=== PATIENT | female | born 1940 | race Caucasian/White ===

== ENCOUNTER 2017-10-14 18:10 | Inpatient (IN) ==
[2017-10-14] MEDS ORDERED: Sodium Chloride 0.9% 1,000 ML PRIMARY IV ONE (18:32)
[2017-10-14] MEDS ORDERED: MORPHINE SULFATE 4 MG/1 ML IVP ONE ×2 (18:32→20:46)
[2017-10-14] MEDS ORDERED: ONDANSETRON 4 MG/2 ML VIAL IVP ONE (18:32)
--- NOTE | 2017-10-14 18:38 | PDOC ---
Abdomen/Flank HPI - General Chief Complaint: Abdomen Pain Stated Complaint: abdominal pain, N/V/D Date Seen by Provider: 10/14/17 Time Seen by Provider: 18:31 Source: POSITIVE: Patient Exam Limitations: POSITIVE: No limitations Nurse's Notes Reviewed & Considered: Yes - History of Present Illness Initial Comments: This is a well-developed, well-nourished, 76-year-old female complaining of lower abdominal pain and vomiting. Patient states that she is traveling through [place] from [place] to [facility] and onto [facility]. She and her are to in the [place] in [place]. This morning she noticed that she had an upset stomach and some nausea. This seemed to resolve and then about 2 PM came back and escalated. She has had vomiting, and nausea, denies any diarrhea, she does have suprapubic abdominal pain. Patient has a mild headache, denies sore throat, no chest pain or shortness of breath, she does have a mild cough, denies any hematuria or dysuria, no increased frequency or decreased volume of urination, no rashes, no myalgias or arthralgias. Patient states she has had chills and is unsure if she has had a fever today. Body Location Affected: REPORTS: Abdomen Timing: REPORTS: Abrupt Duration: 4-6 hours Severity: Severe Quality: REPORTS: Cramping, "Pain" Abdominal Pain Onset Location: REPORTS: Suprapubic Abdominal Pain Radiation: REPORTS: No radiation Context: REPORTS: None Modifying Factors: improves with: Nothing Associated Symptoms: REPORTS: Chills, Nausea, Vomiting Similar Symptoms Previously: No Recent Care Received: REPORTS: Denies Any Prior Injuries Related to Current Complaint?: No - Patient Home Medications Home Medications: Home Medications Albuterol Sulfate [Proair Hfa] 2 puff INH Q6H PRN 10/14/17 Aspirin [Rocio Chewable Aspirin] 81 mg PO DAILY 10/14/17 Calcium Carbonate [Tums] 200 mg PO BID 10/14/17 Carvedilol [Coreg] 6.25 mg PO BID 10/14/17 Cholecalciferol [Vitamin D3] 1,000 mg PO DAILY 10/14/17 Diltiazem HCl [Cartia Xt] 240 mg PO DAILY 10/14/17 Fenofibrate 160 mg PO BEDTIME 10/14/17 Levothyroxine Sodium [Synthroid] 75 mcg PO DAILY 10/14/17 Meclizine HCl 25 mg PO Q6H PRN 10/14/17 Montelukast Sodium 10 mg PO DAILY 10/14/17 Multivitamin [Multivitamins] 1 ea PO DAILY 10/14/17 Mv-Min/FA/Vit K/Lycop/Lut/Zeax [Ocuvite Eye Plus Multi Tablet] 1 tab PO DAILY [place]-3/Dha/Epa/Fish Oil [Fish Oil 1,400 mg Softgel] 1,400 mg PO DAILY 10/14/17 Pantoprazole Sodium [Protonix] 40 mg PO BID 10/14/17 Pravastatin Sodium 40 mg PO DAILY 10/14/17 metFORMIN Tab [Glucophage Tab] 500 mg PO BID 10/14/17 - Patient Allergies Allergies/Adverse Reactions: Allergies 3 Allergy/AdvReac Type Severity Reaction Status Date / Time codeine Allergy ITCHING Verified 10/14/17 18:45 dicloxacillin Allergy RASH Verified 10/14/17 18:45 fentanyl Allergy VOMITING Verified 10/14/17 18:45 Influenza Virus Vaccines Allergy Anaphylaxis Verified 10/14/17 18:45 metformin Allergy DIARRHEA Verified 10/14/17 18:45 midazolam [From Versed] Allergy VOMITING Verified 10/14/17 18:45 promethazine Allergy DYSPHORIA Verified 10/14/17 18:45 tramadol Allergy VOMITING Verified 10/14/17 18:45 gatifloxacin [From Tequin] AdvReac ITCHING Verified 10/14/17 18:45 hydrocodone AdvReac ITCHING Verified 10/14/17 18:45 ROS - Limitations ROS Limitations: No Limitations Constitution: REPORTS: Chills Cardiovascular: REPORTS: Denies Cardiac Symptoms Respiratory: REPORTS: Cough Non Productive Neurological: REPORTS: Headache Gastrointestinal: REPORTS: Abdominal Pain, Nausea, Vomitting Endocrine: REPORTS: Denies Symptoms Musculoskeletal: REPORTS: Denies MS Symptoms Genitourinary: REPORTS: Denies Symptoms Eyes: REPORTS: Denies Symptoms ENT: REPORTS: Denies Symptoms Skin: REPORTS: Denies Skin Symptoms Lympathic: REPORTS: Denies Lympathic Symptoms Immunologic: POSITIVE: Denies Symptoms Psychiatric: POSITIVE: Denies Psych Symptoms Abdominal/Flank Pain PE - General Appearance General Appearance: POSITIVE: Alert, Cooperative, No Evidence of Trauma, Moderate Distress - HEENT HEENT: POSITIVE: Head Inspection Nml, Eyes Inspection Nml, Ears Inspection Nml, Nose Inspection Nml, Oral/Dental Inspect. Nml, Pharynx Inspect. Nml, PERRL, EOMI - Neck Neck: POSITIVE: Normal Inspection - Respiratory Respiratory: POSITIVE: No Respiratory Distress, Breath Sounds Normal, Chest Non- Tender - Cardiovascular Cardiovascular: POSITIVE: Regular Rate and Rhythm, Heart Sounds Normal, Strong Pulses Peripheral Pulses: Radial (R): 4+ - Chest Chest: POSITIVE: Non Tender - Abdomen Abdomen: Soft: (All Quadrants), Denies Tenderness: (LUQ), (RUQ), No Splenomegaly : (All Quadrants), No Hepatomegaly: (All Quadrants), No Guarding: (LUQ), (RUQ), No Rebound: (All Quadrants), No Palpable Pulse: (All Quadrants), No Palpabale Mass: (All Quadrants), No Distention: (All Quadrants), No Rigidity: (All Quadrants), Tenderness Noted: (LLQ), (RLQ), Hyperactive Bowel Sounds: (All Quadrants), Guarding: (RLQ), (LLQ) - Back Back: POSITIVE: Normal Inspection - Skin Skin: POSITIVE: Intact, Normal For Race, Warm, Dry, No Rash - Extremities Extremity: Non-Tender: (All Extremities), Normal ROM: (All Extremities), Normal Inspection: (All Extremities), Pelvis Stable: (All Extremities) - Neurological Neurological: POSITIVE: Affect Apporpriate, Oriented X3, Motor Normal, Sensation Normal - Psychological Psychiatric: POSITIVE: Affect Appropriate, Mood Appropriate Abdomen Progress - Results Reviewed by me Xrays/CTs/US Reviewed by me: Yes Discussed with Radiologist: Yes Lab Results Reviewed by Me: Yes CBC and BMP: 10/14/17 18:25 10/14/17 18:25 - Consult Consult (If Yes, Name of Consulting MD & Time Called): Yes (Dr. Santoyo, Dr. Simmons 2039 hrs) Consulting MD will see pt:: [place] [facility] [place] Counseled: POSITIVE: Patient, Family, RE: Lab Results, RE: Radiology Results, RE : DX, RE: Need for F/U Patient Care Time - Estimated PCT Patient Care Time (In Minutes): 45 Vital Signs - VS Reviewed Vital Signs Reviewed: Yes Discharge Clinical Impression: Abdominal pain, Pneumoperitoneum, Sigmoid diverticulitis Discharge Disposition: Admit to Inpatient Condition: Stable Patient Instructions Given at Discharge: Acute Abdominal Pain (ED), Diverticulitis (ED) Follow Up With: NONE,NONE [Primary Care Provider] - Date Decision to Admit to Inpatient: 10/14/17 Time Decision to Admit to Inpatient: 20:43
[2017-10-14 18:39] LABS: BASOPHILS # (AUTO) 0.01 10*3/UL; BASOPHILS % (AUTO) 0.2 % (0-1); EOSINOPHILS # (AUTO) 0.06 10*3/UL; Hematocrit [HCT] 35.9 % (37.0-47.0); Hemoglobin [HGB] 11.9 g/dL (12.0-16.0); LYMPHOCYTES # (AUTO) 0.95 10*3/uL; MEAN CORPUSCULAR HEMOGLOBIN 30.2 PG (27-31); MEAN CORPUSCULAR HGB CONC 33.1 g/dL (33-37); MEAN CORPUSCULAR VOLUME 91.1 FL (81-99); MEAN PLATELET VOLUME 10.6 FL (7.4-12.2); MONOCYTES # (AUTO) 0.31 10*3/UL (0.3-0.8); MONOCYTES % (AUTO) 5.1 % (5-15); NEUTROPHILS # (AUTO) 4.77 10*3/UL; RED BLOOD COUNT 3.94 10^6/uL (4.20-5.40)
[2017-10-14 18:40] LABS: PLATELET MORPHOLOGY COMMENT NORMAL MORPHOLOGY (NORM); RBC MORPHOLOGY COMMENT NORMAL MORPHOLOGY (NORM); WBC MORPHOLOGY COMMENT NORMAL MORPHOLOGY (NORM)
[2017-10-14] MEDS ORDERED: diphenhydrAMINE 50 MG/1 ML VIAL IVP ONE (18:50)
[2017-10-14] MEDS ORDERED: Acetaminophen 1000mg Inj 1,000 MG/100 ML VIAL IV PRN (18:50)
[2017-10-14] MEDS ORDERED: Prochlorperazine Edisylate Inj 10mg/2ml vial IVP ONE (18:50)
[2017-10-14 18:51] LABS: BLOOD UREA NITROGEN 16 mg/dL (7-22)
[2017-10-14 18:56] LABS: BILIRUBIN,URINE NEGATIVE (NEG); CLARITY,URINE CLEAR (CLEAR); COLOR,URINE YELLOW (Y); GLUCOSE, URINE (UA) NEGATIVE (NEG); OCCULT BLOOD,URINE NEGATIVE (NEG); PH,URINE >=9.0 (5.0-8.5); PROTEIN,URINE NEGATIVE (NEG); UROBILINOGEN,URINE 0.2 EU/dL (0.2)
[2017-10-14 19:18] LABS: URINE SAMPLE TYPE CLEAN CATCH URINE
[2017-10-14] MEDS ORDERED: Magnesium Sulfate 2gm (Premix) 2 GM/50 ML BAG IV ONE (19:33)
--- NOTE | 2017-10-14 20:24 | DI ---
EXAM: CT Abdomen and Pelvis With Intravenous Contrast CLINICAL HISTORY: Pain TECHNIQUE: Axial computed tomography images of the abdomen and pelvis with intravenous contrast. COMPARISON: No relevant prior studies available. FINDINGS: Lung bases: Bibasilar dependent densities may represent atelectasis. An infectious or inflammatory process is not excluded. ABDOMEN: Liver: Unremarkable. Gallbladder and bile ducts: Gallbladder distention. No calcified gallstones. Pancreas: Unremarkable. Spleen: Unremarkable. Adrenals: Unremarkable. Kidneys and ureters: Unremarkable. No solid mass. No hydronephrosis. Stomach and bowel: Thickening of the sigmoid colon with surrounding inflammatory change is concerning for diverticulitis. Small locules of gas adjacent to the sigmoid colon are suggestive of perforated sigmoid diverticulitis. Small bowel is nondilated PELVIS: Appendix: No findings to suggest acute appendicitis. Bladder: Unremarkable. Reproductive: Uterus is absent. Line indeterminate peripherally calcified nodule in the right pelvis. ABDOMEN and PELVIS: Intraperitoneal space: Pneumoperitoneum is concerning for bowel perforation. Bones/joints: No acute osseous abnormality. Soft tissues: Unremarkable. Vasculature: Unremarkable. No abdominal aortic aneurysm. Lymph nodes: Unremarkable. IMPRESSION: Pneumoperitoneum is concerning for bowel perforation. Thickening of the sigmoid colon with adjacent extraluminal gas is suggestive of perforated diverticulitis. [employer] 10/14/17 20:44 Call Doctor Regarding Bowel Perforation with Free Air, called Dr. Yong Vela on 10/14 20:43 (-06:00)
[2017-10-14] MEDS ORDERED: Ertapenem Inj 1 GM in Sodium Chloride 0.9% 100 ML IV ONE (20:37)
--- NOTE | 2017-10-14 21:13 | PDOC ---
HPI - History of Present Illness Date of Service: 10/14/17 Time of Service: 21:11 Chief Complaint: abdominal pain History of Present Illness: This is a very pleasant 76 YO from [place] with atrial fibrilation, high cholesterol, colon polyps, pre-diabetes who came down with abdominal pain of fairly acute onset today. The patient states it was lower quadrant, bilateral, and radiated to the back. Had three normal bowel movements, no blood. No nausea or vomiting. Has not had a pain like this before. Needed morphine here in the emergency room. Had a fever in the emergency room but was not aware of a fever prior to getting here. CT scan confirmed a perforated sigmoid colon with thickening. The patient has had a history of colon polyps in the past and has had colonoscopy procedures frequently but does not recall being told she has had diverticular disease. No complaints of chest pain or SOB. She states that she is on aspirin with her atrial fibrillation and is not on any other blood thinners. Dr. Santoyo examined the patient at the same time as me and felt the patient needed to go directly to the OR. INvanz and potassium are on STAT order. Notably, the patient has had two prior C-sections and had an incidental appendectomy. Past Medical History Medical History: 1. prediabetes. 2. colon polyps. 3. atrial fibrillation. 4.asthma. 5. hypercholesterolemia. 6. hypothyroidism Surgical History: 1. bilateral thumb surgery. 2. carpal tunnel release. 3. C- section X 2,. 4. incidental appendectomy Pertinent Family History: significant for heart disease in parents and brother. Past Social History: does not smoke or drink alcohol. over thirty nine years. retired. resides in [place]. has two healthy children. Tobacco Use: Never Smoker In the Past 12 Months, Have Used or Abuse Any of the Following Substance: None Alcohol Use: None Medication / Allergies Home Medications: Home Medications 3 Medication Instructions Recorded Confirmed Type Albuterol Sulfate [Proair Hfa] 2 puff INH Q6H PRN 10/14/17 10/14/17 History Aspirin [Rocio Chewable Aspirin] 81 mg PO DAILY 10/14/17 10/14/17 History Calcium Carbonate [Tums] 200 mg PO BID 10/14/17 10/14/17 History Carvedilol [Coreg] 6.25 mg PO BID 10/14/17 10/14/17 History Cholecalciferol [Vitamin D3] 1,000 mg PO DAILY 10/14/17 10/14/17 History Diltiazem HCl [Cartia Xt] 240 mg PO DAILY 10/14/17 10/14/17 History Fenofibrate 160 mg PO BEDTIME 10/14/17 10/14/17 History Levothyroxine Sodium [Synthroid] 75 mcg PO DAILY 10/14/17 10/14/17 History Meclizine HCl 25 mg PO Q6H PRN 10/14/17 10/14/17 History Montelukast Sodium 10 mg PO DAILY 10/14/17 10/14/17 History Multivitamin [Multivitamins] 1 ea PO DAILY 10/14/17 10/14/17 History Mv-Min/FA/Vit K/Lycop/Lut/Zeax 1 tab PO DAILY 10/14/17 10/14/17 History [Ocuvite Eye Plus Multi Tablet] [place]-3/Dha/Epa/Fish Oil [Fish Oil 1,400 mg PO DAILY 10/14/17 10/14/17 History 1,400 mg Softgel] Pantoprazole Sodium [Protonix] 40 mg PO BID 10/14/17 10/14/17 History Pravastatin Sodium 40 mg PO DAILY 10/14/17 10/14/17 History metFORMIN Tab [Glucophage Tab] 500 mg PO BID 10/14/17 10/14/17 History Allergies/Adverse Reactions: Allergies 3 Allergy/AdvReac Type Severity Reaction Status Date / Time codeine Allergy ITCHING Verified 10/14/17 18:45 dicloxacillin Allergy RASH Verified 10/14/17 18:45 fentanyl Allergy VOMITING Verified 10/14/17 18:45 Influenza Virus Vaccines Allergy Anaphylaxis Verified 10/14/17 18:45 metformin Allergy DIARRHEA Verified 10/14/17 18:45 midazolam [From Versed] Allergy VOMITING Verified 10/14/17 18:45 promethazine Allergy DYSPHORIA Verified 10/14/17 18:45 tramadol Allergy VOMITING Verified 10/14/17 18:45 gatifloxacin [From Tequin] AdvReac ITCHING Verified 10/14/17 18:45 hydrocodone AdvReac ITCHING Verified 10/14/17 18:45 Review of Systems - Review of Systems All Systems: Reviewed & No Additional Complaints Except as Stated (I did a 12 point review of systems and it was negative except as per HPI and that noted below:) - Constitutional Constitutional: REPORTS: Fever / Chills - Gastrointestinal Gastrointestinal / Abdominal: REPORTS: Abdominal Pain - Neurological Neurologic: REPORTS: Headache (past four days.) Exam - Vitals Vital Signs: Vital Signs Temperature 100.2 F Temperature Source Temporal Artery Scan Pulse Rate [Pulse Oximeter] 112 Respiratory Rate 20 Blood Pressure [Left Arm] 175/84 Pulse Ox 92 Oxygen Delivery Method Room Air Height 5 ft 1 in Weight 150 lb - General General Appearance: No Acute Distress, Cooperative Additional General Exam Details: appears in pain, not toxic, not septic appearing. - Head Head Exam: Normal Inspection, Normocephalic, Atraumatic - Eye Eye Exam: POSITIVE: No Scleral Icterus - ENT ENT Exam: POSITIVE: Mucous Membranes Moist - Neck Neck Exam: Normal Inspection, No Tenderness, No Lymphadenopathy, No Thyromegaly - Respiratory Respiratory Exam: POSITIVE: Clear to Auscultation - Bilaterally, Breathing Non Labored Additional Respiratory Exam Details: had increase in abdominal pain with deep breaths. - Cardiovascular Cardiovascular Exam: POSITIVE: No Murmur, No Clicks, No Gallops, No Rubs, No JVD - GI/Abdominal GI/Abdominal Exam: POSITIVE: Normal Bowel Sounds, Guarding Additional GI/Abdominal Exam Details: very tender to palpation, even with distraction. - Rectal Rectal Exam: POSITIVE: Deferred - External Exam: POSITIVE: Deferred Exam: POSITIVE: Deferred - Extremities Extremities Exam: POSITIVE: Normal Capillary Refill, No Clubbing Present, No Edema Present, No Cyanosis Present - Neurological Neurological Exam: POSITIVE: Alert, Oriented x 3, No Facial Droop, Speech Intact / Clear, Moves All Extremities Equally - Psychiatric Psychiatric Exam: POSITIVE: Normal Affect, Normal Mood Results - Labs CBC and BMP: 10/14/17 18:25 10/14/17 18:25 Additional Lab Results: Laboratory Results 10/14/17 10/14/17 10/14/17 Range/Units 18:25 18:25 19:17 WBC 6.11 (4.8-10.8) 10^3/uL RBC 3.94 L (4.20-5.40) 10^6/uL Hgb 11.9 L (12.0-16.0) g/dL Hct 35.9 L (37.0-47.0) % MCV 91.1 (81-99) FL MCH 30.2 (27-31) PG MCHC 33.1 (33-37) g/dL RDW Std Deviation 50.5 H (39-50) fL RDW Coeff of Pascual 15.9 H (11.5-14.5) % Plt Count 188 (140-350) 10*3/uL MPV 10.6 (7.4-12.2) FL Immature Gran % (Auto) 0.2 (0-5) % Neut % (Auto) 78.0 (50-80) % Lymph % (Auto) 15.5 (10-50) % [place] % (Auto) 5.1 (5-15) % Eos % (Auto) 1.0 (0-8) % Baso % (Auto) 0.2 (0-1) % Immature Gran # (Auto) 0.01 10*3/UL Neut # (Auto) 4.77 10*3/UL Lymph # (Auto) 0.95 10*3/uL [place] # (Auto) 0.31 (0.3-0.8) 10*3/UL Eos # (Auto) 0.06 10*3/UL Baso # (Auto) 0.01 10*3/UL WBC Morphology Comment Normal morphology (NORM) Plt Morphology Comment Normal morphology (NORM) RBC Morph Comment Normal morphology (NORM) Sodium 141 (135-145) meq/L Potassium 3.1 L (3.8-5.2) meq/L Chloride 102 (98-112) meq/L Carbon Dioxide 24 (23-33) meq/L Anion Gap 15 (5-20) BUN 16 (7-22) mg/dL Creatinine 1.0 (0.50-1.20) mg/dL BUN/Creatinine Ratio 16.00 (6-20) Glucose 111 H (78-110) mg/dL Calculated Osmolality 293.0 H (267-292) mOsm/kg Calcium 9.1 (8.7-10.7) mg/dL Magnesium 1.3 L (1.6-2.4) mg/dL Total Bilirubin 0.5 (0.3-1.2) mg/dL AST 28 (8-39) IU/L ALT 36 (9-52) IU/L Alkaline Phosphatase 66 (38-126) IU/L C-Reactive Protein 2.9 H (0.0-0.9) mg/dL Total Protein 6.9 (6.1-8.0) g/dL Albumin 4.0 (3.5-4.8) g/dL Globulin 2.8 (2.50-4.10) g/dL Albumin/Globulin Ratio 1.40 (1.3-2.0) mg/g Ur Collection Type Clean catch urine Urine Color Yellow (Y) Urine Clarity Clear (CLEAR) Urine pH >=9.0 (5.0-8.5) Ur Specific [place] 1.015 (1.005-1.030) Urine Protein Negative (NEG) mg/dl Urine Glucose (UA) Negative (NEG) mg/dL Urine Ketones Negative (NEG) Urine Occult Blood Negative (NEG) Urine Nitrate Negative (NEG) Urine Bilirubin Negative (NEG) Urine Urobilinogen 0.2 (0.2) EU/dL Ur Leukocyte Esterase Negative (NEG) Ur Culture Indicated? Culture not set - Imaging Status: Report Reviewed by Me (CT scan positive for diverticular rupture and diverticulitis) AFib Stroke Risk Screening - AFib Stroke Risk (CHADS-VASc) Atrial Fibrillation Ischemic Stroke Risk Factors: Hypertension (patient is managed on aspirin by her regulatory analyst in [place]), Age 65 to 74 years, Female CHADS-VASc Score (A-Fib Stroke Risk Score): 3 CHADS-VASc Risk: High Risk Assessment and Plan - Patient Problems (1) Bowel perforation Current Visit: Yes Status: Acute Code(s): K63.1 - Perforation of intestine ( nontraumatic) (2) Sigmoid diverticulitis Current Visit: Yes Status: Acute Code(s): K57.32 - Diverticulitis of large intestine without perforation or abscess without bleeding (3) Atrial fibrillation Current Visit: Yes Status: Acute Code(s): I48.91 - Unspecified atrial fibrillation Qualifiers: Atrial fibrillation type: chronic Qualified Code(s): I48.2 - Chronic atrial fibrillation (4) Asthma Current Visit: Yes Status: Acute Code(s): J45.909 - Unspecified asthma, uncomplicated Qualifiers: Asthma severity: mild Asthma persistence: intermittent Asthma complication type: uncomplicated Qualified Code(s): J45.20 - Mild intermittent asthma, uncomplicated (5) HTN (hypertension) Current Visit: Yes Status: Acute Code(s): I10 - Essential (primary) hypertension Qualifiers: Hypertension type: essential hypertension Qualified Code(s): I10 - Essential (primary) hypertension (6) Hypercholesterolemia Current Visit: Yes Status: Chronic Code(s): E78.00 - Pure hypercholesterolemia, unspecified (7) Hypothyroidism Current Visit: Yes Status: Chronic Code(s): E03.9 - Hypothyroidism, unspecified Qualifiers: Hypothyroidism type: acquired Qualified Code(s): E03.9 - Hypothyroidism, unspecified - Assessment / Plan Additional Assessment/Plan Details: admit discussed with surgery--patient will go directly from ER to the OR Invanz electrolyte replacement hold meds (PO meds) labs in AM blood cultures pending FULL code discussed with surgery, patient, probably to ICU post surgery for monitoring post operative DVT prophylaxis IV fluis/pain medications/antiemetics.
[2017-10-14] MEDS ORDERED: CALCIUM CARBONATE 500 MG (TUMS) CHEWABLE TABLET PO PRN (21:17)
[2017-10-14] MEDS ORDERED: Ertapenem Inj 1 GM in Sodium Chloride 0.9% 100 ML IV SCH (21:17)
[2017-10-14] MEDS ORDERED: ACETAMINOPHEN 325 MG TABLET PO PRN (21:17)
[2017-10-14] MEDS ORDERED: ALBUTEROL SULFATE 2.5 MG/3 ML NEB PRN (21:17)
[2017-10-14] MEDS ORDERED: DOCUSATE 100 MG CAPSULE PO PRN (21:17)
[2017-10-14] MEDS ORDERED: Sodium Chloride 0.9% 1,000 ML PRIMARY IV SCH (21:17)
[2017-10-14] MEDS ORDERED: HYDROmorphone 2 MG/1 ML IVP PRN (21:17)
[2017-10-14] MEDS ORDERED: LIDOCAINE W/ SODIUM BICARB 0.5 ML SYR SUBD PRN (21:17)
[2017-10-14] MEDS ORDERED: ONDANSETRON 4 MG/2 ML VIAL IVP PRN (21:17)
[2017-10-14] MEDS ORDERED: LIDOCAINE HCL 2 % 10 ML JELLY URO-JECT TOPICAL PRN (21:34)
[2017-10-14] MEDS ORDERED: PROPOFOL 10 MG/1 ML (200 MG/20 ML) VIAL IV ONE (21:41)
[2017-10-14] MEDS ORDERED: LIDOCAINE MPF 2% - 5 ML (20 MG/1 ML) ONE (21:41)
[2017-10-14] MEDS ORDERED: ROCURONIUM 10 MG/1 ML - 5 ML VIAL IVP ONE ×2 (21:42→23:26)
[2017-10-14] MEDS ORDERED: MIDAZOLAM 5 MG/1 ML ONE (21:42)
[2017-10-14] MEDS ORDERED: fentaNYL Inj 250 MCG/5 ML VIAL ONE (21:42)
[2017-10-14] MEDS ORDERED: Lactated Ringers 1,000 ML PRIMARY IV SCH (21:45)
--- NOTE | 2017-10-14 21:51 | CONSULT ---
Consult Note - Consult Consult Date: 10/14/17 Reason for Consult: PreOp Consulation : General Surgery Requesting Physician: Dr. Vela, Dr. Simmons. Primary Care Provider: NONE NONE - History of Present Illness History of Present Illness: The patient is a pleasant 76-year-old female who is traveling across the country in her RV with her who developed significant abdominal pain this morning. She had an upset stomach and nausea. That seemed to pass. She did have a couple of bowel movements. It was not diarrhea and not bloody. She traveled from [facility] to [facility]. She was making lunch about 2: 00 and just had severe suprapubic abdominal pain which radiated into her back. She was nauseated. She told me she vomited once. She presented to the emergency room because the pain just continued to escalate. On arrival she was tachycardic. Her white count was normal. She had a very tender abdomen. CT abdomen and pelvis was done which shows findings consistent with perforated diverticular disease and free intraperitoneal air. She has an acute surgical abdomen. She'll be taken to the operating room for exploratory laparotomy with planned sigmoid colectomy and end colostomy. Hopefully this is a perforated ulcer but findings indicate perforated diverticular disease. Many large diverticuli are seen on the CT scan. Patient does have a history of colon polyps. She's had multiple colonoscopies. She reports she's never been told that she had diverticulosis. She has never had diverticulitis. Her last colonoscopy was in approximately 2014. She is status post hysterectomy and unilateral oophorectomy with incidental appendectomy. Review of Systems - Constitutional Constitutional: REPORTS: General Health Good, Fever / Chills - Gastrointestinal Gastrointestinal / Abdominal: REPORTS: Nausea, Vomiting, Abdominal Pain, Poor Appetite, See HPI Past Medical History Medical History: 1. prediabetes. 2. colon polyps. 3. atrial fibrillation. 4. asthma. 5. hypercholesterolemia. 6. hypothyroidism. 7. GERD. 8. History of pyelonephritis. 9. Hypertension Surgical History: 1. bilateral wrist surgery. 2. carpal tunnel release. 3. C- section X 2,. 4. incidental appendectomy. 5. Hysterectomy with unilateral oophorectomy. 6. Multiple colonoscopies. Pertinent Family History: significant for heart disease in parents and brother. Past Social History: does not smoke or drink alcohol. over thirty nine years. retired. resides in [place]. has two healthy children. Tobacco Use: Never Smoker In the Past 12 Months, Have Used or Abuse Any of the Following Substance: None Alcohol Use: Rarely (Very rarely.) Medication / Allergies Home Medications: Home Medications 3 Medication Instructions Recorded Confirmed Type Albuterol Sulfate [Proair Hfa] 2 puff INH Q6H PRN 10/14/17 10/14/17 History Aspirin [Rocio Chewable Aspirin] 81 mg PO DAILY 10/14/17 10/14/17 History Calcium Carbonate [Tums] 200 mg PO BID 10/14/17 10/14/17 History Carvedilol [Coreg] 6.25 mg PO BID 10/14/17 10/14/17 History Cholecalciferol [Vitamin D3] 1,000 mg PO DAILY 10/14/17 10/14/17 History Diltiazem HCl [Cartia Xt] 240 mg PO DAILY 10/14/17 10/14/17 History Fenofibrate 160 mg PO BEDTIME 10/14/17 10/14/17 History Levothyroxine Sodium [Synthroid] 75 mcg PO DAILY 10/14/17 10/14/17 History Meclizine HCl 25 mg PO Q6H PRN 10/14/17 10/14/17 History Montelukast Sodium 10 mg PO DAILY 10/14/17 10/14/17 History Multivitamin [Multivitamins] 1 ea PO DAILY 10/14/17 10/14/17 History Mv-Min/FA/Vit K/Lycop/Lut/Zeax 1 tab PO DAILY 10/14/17 10/14/17 History [Ocuvite Eye Plus Multi Tablet] [place]-3/Dha/Epa/Fish Oil [Fish Oil 1,400 mg PO DAILY 10/14/17 10/14/17 History 1,400 mg Softgel] Pantoprazole Sodium [Protonix] 40 mg PO BID 10/14/17 10/14/17 History Pravastatin Sodium 40 mg PO DAILY 10/14/17 10/14/17 History metFORMIN Tab [Glucophage Tab] 500 mg PO BID 10/14/17 10/14/17 History Allergies/Adverse Reactions: Allergies 3 Allergy/AdvReac Type Severity Reaction Status Date / Time codeine Allergy ITCHING Verified 10/14/17 18:45 dicloxacillin Allergy RASH Verified 10/14/17 18:45 fentanyl Allergy VOMITING Verified 10/14/17 18:45 Influenza Virus Vaccines Allergy Anaphylaxis Verified 10/14/17 18:45 metformin Allergy DIARRHEA Verified 10/14/17 18:45 midazolam [From Versed] Allergy VOMITING Verified 10/14/17 18:45 promethazine Allergy DYSPHORIA Verified 10/14/17 18:45 tramadol Allergy VOMITING Verified 10/14/17 18:45 gatifloxacin [From Tequin] AdvReac ITCHING Verified 10/14/17 18:45 hydrocodone AdvReac ITCHING Verified 10/14/17 18:45 Results - Labs CBC and BMP: 10/14/17 18:25 10/14/17 18:25 - Imaging Status: Image Reviewed by Me, Report Reviewed by Me Exam - Vitals Vital Signs: Vital Signs Temperature 100.2 F Temperature Source Temporal Artery Scan Pulse Rate [Pulse Oximeter] 112 Respiratory Rate 20 Blood Pressure [Left Arm] 175/84 Pulse Ox 92 Oxygen Delivery Method Room Air Height 5 ft 1 in Weight 150 lb - General General Appearance: Cooperative, Mild Distress - Respiratory Respiratory Exam: POSITIVE: Clear to Auscultation - Bilaterally, Breathing Non Labored - Cardiovascular Cardiovascular Exam: POSITIVE: RRR, No Murmur - GI/Abdominal GI/Abdominal Exam: POSITIVE: Firm, Distended, Guarding, Hypoactive Bowel Sounds , Rebound, Rigid Additional GI/Abdominal Exam Details: Diffuse abdominal tenderness with peritoneal signs. Guarding and rebound are present. Nonfocal exam. Patient has peritonitis. - Rectal Rectal Exam: POSITIVE: Deferred - Neurological Neurological Exam: POSITIVE: Alert, Oriented x 3 - Psychiatric Psychiatric Exam: POSITIVE: Normal Affect, Normal Mood Assessment and Plan - Patient Problems (1) Perforated viscus Current Visit: Yes Status: Acute Priority: High Onset Date: 10/14/17 Comment: This appears to be consistent with perforated diverticular disease. There is free intraperitoneal air as well as multiple bubbles within the mesentery. There is inflammation around the sigmoid colon and large diverticuli. She will be taken to the operating room for an exploratory laparotomy with planned sigmoid colectomy and end colostomy i.e. a Lucia procedure. The procedure has been discussed with the patient in complete yet simple terms including benefits, risks, and alternatives. All questions have been answered. Informed consent has been obtained. I have discussed all the above with the patient and her as well as the hospitalist and the emergency room physician. All are in agreement to proceed as outlined. Dr. Simmons will manage her medical problems postoperatively. Code(s): R19.8 - Other specified symptoms and signs involving the digestive system and abdomen
[2017-10-14] MEDS ORDERED: SUFENTANIL 50 MCG/1 ML ONE (22:12)
[2017-10-14] MEDS ORDERED: HYDROmorphone 2 MG/1 ML ONE ×2 (22:14→22:55)
[2017-10-14] MEDS ORDERED: Sodium Chloride 0.9% 100 ML IV ONE (22:32)
[2017-10-14] MEDS ORDERED: Lactated Ringers 1,000 ML PRIMARY IV ONE ×2 (22:45→23:21)
[2017-10-14] MEDS ORDERED: KETAMINE 100 MG/1 ML - 5 ML ONE (22:53)
[2017-10-14] MEDS ORDERED: Bacteriostatic NaCl Inj 30ml Vial ONE (23:29)
[2017-10-14] MEDS ORDERED: Sodium Chloride 0.9% vial 10 ML ONE (23:29)
[2017-10-14] MEDS ORDERED: BUPivacaine Liposome/PF (Exparel) Inj 20ml vial INFIL ONE (23:29)
[2017-10-15] MEDS ORDERED: ePHEDrine Inj 50 MG/ML AMP ONE (00:13)
[2017-10-15] MEDS ORDERED: SUGAMMADEX SODIUM 200 MG/2 ML VIAL IV ONE (00:36)
[2017-10-15] MEDS ORDERED: ONDANSETRON 4 MG/2 ML VIAL ONE (00:44)
--- NOTE | 2017-10-15 00:48 | GEN.OPNOTE ---
Operative Note Surgery Date: 10/14/17 (finished 10/15/2017) Preoperative Diagnosis: Perforated viscus. Probable perforated diverticular disease. Postoperative Diagnosis: Perforated diverticular disease. Procedure: #1 Colectomy with end colostomy and closure of the distal segment i.e. Lucia procedure. #2 Right oophorectomy. Surgeon: Jose F Santoyo MD Anesthesia Provider: Maury Aguilar CRNA Anesthesia Type: General Estimated Blood Loss (mL): 50 Fluids: 500 mL of normal saline. 2300 mL of lactated Ringer's. 1 g of IV Invanz prior to the start of the procedure. 15 mg of IV Toradol at the end of the procedure. Pathology: Specimens to pathology included the resected sigmoid colon and the right ovary. Indications: Perforated viscus consistent with perforated diverticular disease and an acute abdomen. Findings: Sigmoid diverticulosis with full-thickness perforation. Fluid and air in the peritoneal cavity. The fluid was turbid. No feculent material. The right ovary was rock hard and nodular. It was removed for pathologic analysis. Complications: None. Operative Summary: The patient was taken to the operating suite and placed on the operating table in the supine position. Following induction of general anesthetic the abdomen was prepped and draped in a sterile fashion. A surgical timeout was done. A periumbilical incision was made. The incision was extended both superiorly and inferiorly. An Bhaskar wound retractor was placed. The abdomen contained fluid and air. The fluid was turbid but there was no gross fecal material. Palpation revealed sigmoid colon thickening and inflammatory changes. The stomach and duodenum appeared normal. The small bowel was run from the ligament of Treitz to the cecum. There was some serosal inflammation on the small bowel but no signs of perforation. The cecum, ascending colon and transverse colon were quite dilated with air. The sigmoid colon had very dense inflammatory changes and a full-thickness perforation. Extensive irrigation and suctioning were performed. Attention was turned to the sigmoid colon. It was mobilized. Transection sites were chosen proximally and distally. The bowel was cleared of pericolonic fat. The proximal bowel was transected with a linear 55 mm stapling device. The distal bowel was stapled off with a 60 mm stapling device. The bowel was clamped opposite the stapler and divided. The mesentery was taken down by serially clamping dividing and ligating the mesentery with 0 Vicryl ties. I stayed close to the bowel as this appeared to be a benign process. The sigmoid colon was removed from the operative field. Hemostasis was assured. Again extensive irrigation was done. Having resected the bowel the distal rectal stump was secured to the pelvic sidewall with a 2-0 Prolene suture. The descending colon was mobilized. Once we had enough length to perform a colostomy attention was turned to the abdominal wall. A chilkat of skin was removed as well as a plug of adipose tissue. The abdominal fascia was cut in a cruciate fashion. This was just at the lateral border of the rectus muscle. The posterior sheath was incised. The descending colon was passed through the abdominal wall. Final irrigation and suctioning were performed. Intestines were placed in a relative anatomic position and covered with omentum. The midline fascia was closed with running # 1 Prolene. The wound was extensively irrigated. It was partially closed in sections with a stapling device. Saline soaked gauze tape was used to pack the wound where it had been left open. An appropriate dressing was placed. Both the midline incision and the stoma site were circumferentially infiltrated with Exparel Attention was turned to the stoma site. The staple line was excised. The colostomy was matured with 4-0 Vicryl sutures in the usual fashion. An appropriate appliance was placed. The patient tolerated the entire procedure well without complication. She was taken to recovery room in stable but guarded condition. All counts were correct.
[2017-10-15] MEDS ORDERED: KETOROLAC 30 MG/1 ML VIAL ONE (00:50)
[2017-10-15] MEDS ORDERED: Nalbuphine Inj 20 MG/ML Ampule ONE (00:56)
[2017-10-15] MEDS ORDERED: Nalbuphine Inj 20 MG/ML Ampule IVP PRN (01:12)
[2017-10-15] MEDS ORDERED: LIDOCAINE W/ SODIUM BICARB 0.5 ML SYR SUBD PRN (01:12)
--- NOTE | 2017-10-15 01:12 | CRNA.PROGR ---
Anesthesia Time - - Start date: 10/14/17 End date: 10/15/17 - Procedure/Recovery Time Anesthesia : Time In: 22:15 Anesthesia : Time Out: 01:09 Anesthesia : Total Time: 174 - Total Anesthesia Time Total Anesthesia Time (minutes): 174 - Other Weight: 68.039 kg Height: 5 ft 1 in Body Mass Index (BMI): 28.3 Physical Status: P3 Anesthesia Type: General Anesthesia : ET (E)
--- NOTE | 2017-10-15 01:12 | CRNA.PROGR ---
Anesthesia Recovery Phase I - Post Anesthesia Evaluation Patient's Condition on Arrival in Phase I: Stable Pain Level: 0
[2017-10-15] MEDS ORDERED: HYDROmorphone 2 MG/1 ML IVP PRN (01:59)
[2017-10-15] MEDS ORDERED: ALBUTEROL SULFATE 2.5 MG/3 ML NEB PRN (01:59)
[2017-10-15] MEDS: D5-LR + 20mEq KCL 1,000 ML PRIMARY IV SCH ×2 (02:30→11:05)
[2017-10-15] MEDS ORDERED: Acetaminophen 1000mg Inj 1,000 MG/100 ML VIAL IV PRN (04:00)
[2017-10-15] MEDS: ONDANSETRON 4 MG/2 ML VIAL IVP PRN ×2 (04:52→16:22)
[2017-10-15 05:12] LABS: BASOPHILS # (AUTO) 0 10*3/UL; BASOPHILS % (AUTO) 0 % (0-1); EOSINOPHILS # (AUTO) 0 10*3/UL; EOSINOPHILS % (AUTO) 0 % (0-8); Hematocrit [HCT] 31.1 % (37.0-47.0); Hemoglobin [HGB] 10.3 g/dL (12.0-16.0); LYMPHOCYTES # (AUTO) 0.75 10*3/uL; MEAN CORPUSCULAR HEMOGLOBIN 30.1 PG (27-31); MEAN CORPUSCULAR HGB CONC 33.1 g/dL (33-37); MEAN CORPUSCULAR VOLUME 90.9 FL (81-99); MEAN PLATELET VOLUME 11.1 FL (7.4-12.2); MONOCYTES # (AUTO) 0.27 10*3/UL (0.3-0.8); MONOCYTES % (AUTO) 3.1 % (5-15); NEUTROPHILS # (AUTO) 7.71 10*3/UL; NEUTROPHILS % (AUTO) 88.2 % (50-80); RED BLOOD COUNT 3.42 10^6/uL (4.20-5.40)
[2017-10-15 05:17] LABS: BLOOD UREA NITROGEN 11 mg/dL (7-22); BUN/CREATININE RATIO 15.71 (6-20)
[2017-10-15 05:27] LABS: PLATELET MORPHOLOGY COMMENT NORMAL MORPHOLOGY (NORM); RBC MORPHOLOGY COMMENT NORMAL MORPHOLOGY (NORM); WBC MORPHOLOGY COMMENT NORMAL MORPHOLOGY (NORM)
[2017-10-15] MEDS ORDERED: Prochlorperazine Edisylate Inj 10mg/2ml vial IVP PRN (05:56)
[2017-10-15] MEDS: KETOROLAC 15 MG/1 ML VIAL IVP SCH ×3 (07:22→19:25)
[2017-10-15] MEDS ORDERED: CARVEDILOL 6.25 MG TABLET PO SCH (09:00)
[2017-10-15] MEDS ORDERED: PANTOPRAZOLE IV 40 MG VIAL IVP SCH ×2 (09:00)
[2017-10-15] MEDS: CARVEDILOL 6.25 MG TABLET PO SCH ×2 (09:10→20:37)
[2017-10-15] MEDS ORDERED: Magnesium Sulfate 4gm (Premix) 4 GM/100 ML BAG IV ONE (09:53)
[2017-10-15] MEDS ORDERED: ENOXAPARIN SODIUM 40 MG/0.4 ML SYRINGE SUBCUT ONE (09:57)
--- NOTE | 2017-10-15 11:30 | PDOC(PROG) ---
Date and Time of Service: 10/15/2017, 1126 Interval History: Patient seen and evaluated earlier today. Overall breathes a little shallow with some of the narcotics. She states her pain is better. Has some nausea. No chest pain and no shortness of breath. I gave the patient and her a handout on diverticulitis. Objective : Data - Labs CBC and BMP: 10/15/17 04:30 10/15/17 04:30 Additional Lab Results: 10/15/17 10/15/17 04:30 04:30 Magnesium 1.1 L Total Bilirubin 0.4 AST 49 H ALT 43 Alkaline Phosphatase 40 Total Protein 5.4 L Albumin 3.0 L Globulin 2.4 L Objective : Exam - General General Appearance: No Acute Distress, Cooperative Additional General Exam Details: Vital Signs - Last Taken Temperature 97.0 F 10/15/17 11:00 Pulse Rate 73 10/15/17 11:00 Respiratory Rate 10 L 10/15/17 11:00 Blood Pressure 124/60 10/15/17 11:00 Pulse Ox 97 10/15/17 11:00 - Eye Eye Exam: No Scleral Icterus - ENT ENT Exam: Mucous Membranes Dry - Neck Neck Exam: JVP is not Raised - Respiratory Respiratory Exam: Clear to Auscultation - Bilaterally, Breathing Non Labored - Cardiovascular Cardiovascular Exam: RRR, No Clicks, No Gallops, No Rubs, Systolic Murmur, No JVD - GI/Abdominal GI/Abdominal Exam: Non Distended Additional GI/Abdominal Exam Details: Midline incision is clean, dry, intact I believe it is dressed and the dressing is clean, dry, intact. Ostomy is noted. It appears pink and viable. No stool in the bag. Much less tender to palpation. - Extremities Extremities Exam: No Clubbing Present, No Edema Present, No Cyanosis Present - Neurological Neurological Exam: Alert, Oriented x 3, No Facial Droop, Speech Intact / Clear, Moves All Extremities Equally Assessment and Plan - Patient Problems (1) Bowel perforation Current Visit: Yes Status: Acute Code(s): K63.1 - Perforation of intestine ( nontraumatic) (2) Sigmoid diverticulitis Current Visit: Yes Status: Acute Code(s): K57.32 - Diverticulitis of large intestine without perforation or abscess without bleeding (3) Atrial fibrillation Current Visit: Yes Status: Acute Code(s): I48.91 - Unspecified atrial fibrillation Qualifiers: Atrial fibrillation type: chronic Qualified Code(s): I48.2 - Chronic atrial fibrillation (4) Asthma Current Visit: Yes Status: Acute Code(s): J45.909 - Unspecified asthma, uncomplicated Qualifiers: Asthma severity: mild Asthma persistence: intermittent Asthma complication type: uncomplicated Qualified Code(s): J45.20 - Mild intermittent asthma, uncomplicated (5) HTN (hypertension) Current Visit: Yes Status: Acute Code(s): I10 - Essential (primary) hypertension Qualifiers: Hypertension type: essential hypertension Qualified Code(s): I10 - Essential (primary) hypertension (6) Hypercholesterolemia Current Visit: Yes Status: Chronic Code(s): E78.00 - Pure hypercholesterolemia, unspecified (7) Hypothyroidism Current Visit: Yes Status: Chronic Code(s): E03.9 - Hypothyroidism, unspecified Qualifiers: Hypothyroidism type: acquired Qualified Code(s): E03.9 - Hypothyroidism, unspecified (8) Hypokalemia Current Visit: Yes Status: Acute Code(s): E87.6 - Hypokalemia (9) Hypomagnesemia Current Visit: Yes Status: Acute Code(s): E83.42 - Hypomagnesemia - Assessment / Plan Additional Assessment/Plan Details: Overall, very encouraged. Patient did not appear septic to me. I think we should continue Invanz for now. Probably warrants a 14 day course of antibiotics total. Replace electrolytes including magnesium and potassium. Potassium is somewhat better, but magnesium is quite low. Hopefully this will help us avoid any postoperative ileus. Continue IV fluids. Add DVT prophylaxis with Lovenox. We'll get PT and OT involved as we'll need to start teaching patient ostomy management here soon. I also like to mobilize her as soon as possible in terms of ambulation. Cut back on the Dilaudid to every 4 hours reduce the dose to 1 mg. Patient does get some low respirations with this medication at times. Discussed with RN at bedside. Patient does not become hypoxic with these pain medications which is very encouraging. Fluids in terms of input and output looked almost balanced. Labs in a.m.
--- NOTE | 2017-10-15 12:59 | PDOC(PROG) ---
Subjective Post Op Day: 0.5 Pain Management: IV Toradol, Tylenol, and Dilaudid. Mclaughlin Catheter: Yes Flatus: No Diet: NPO Ambulating: No Date and Time of Service: 10/15/2017. Patient seen at 12:15 PM Interval History: Awake alert. Rates her pain at 3. Reports she got too sedated on the Dilaudid. That has been reduced in dosage. Has a little bit of nausea. No heartburn or vomiting. Not feeling any rumbling in her abdomen. Has not been out of bed yet. I discussed the surgical findings with the patient and her . All questions were answered. Objective : Data - Labs CBC and BMP: 10/15/17 04:30 10/15/17 04:30 - Vital Signs Vital Signs and I&O: Vital Signs - Last Taken Temperature 97.0 F 10/15/17 11:00 Pulse Rate 76 10/15/17 12:00 Respiratory Rate 9 L 10/15/17 12:00 Blood Pressure 119/62 10/15/17 12:00 Pulse Ox 96 10/15/17 12:00 Intake and Output (24hr x 4 totals) 10/13/17 10/14/17 10/15/17 10/16/17 05:59 05:59 05:59 05:59 Intake Total 494 / 494 526 / 526 Output Total 750 / 750 150 / 150 Balance -256 / -256 376 / 376 Objective : Exam - General General Appearance: Cooperative, Mild Distress - Respiratory Respiratory Exam: Clear to Auscultation - Bilaterally, Breathing Non Labored - Cardiovascular Cardiovascular Exam: RRR, No Murmur - GI/Abdominal GI/Abdominal Exam: Soft Additional GI/Abdominal Exam Details: The abdomen is soft and diffusely tender. It seems to be incisional tenderness. There are a few bowel tones. She appears still slightly distended. The dressing is dry and intact. Stoma is viable. No output from the stoma. - Extremities Extremities Exam: Pedal Edema (Right more than left. She reports this is chronic.) - Neurological Neurological Exam: Alert, Oriented x 3 - Psychiatric Psychiatric Exam: Normal Affect, Normal Mood Assessment and Plan - Patient Problems (1) Perforation of sigmoid colon due to diverticulitis Current Visit: Yes Status: Acute Priority: High Onset Date: 10/14/17 Comment: Status post colectomy with end colostomy. Surgically appears to be doing very well. We will start a few ice chips. We'll check some lab work in the morning. Patient needs to start getting out of bed. Continue IV antibiotics. ICU another day. I discussed everything with the patient and her family as well as the hospitalist, Dr. Simmons. Continue current care. Code(s): K57.20 - Diverticulitis of large intestine with perforation and abscess without bleeding
[2017-10-15] MEDS: 1/2NS + 20mEq KCL 1,000 ML PRIMARY IV SCH ×2 (13:19→22:14)
[2017-10-15] MEDS: HYDROmorphone 2 MG/1 ML IVP PRN (13:28)
--- NOTE | 2017-10-15 14:19 | CRNA.PROGR ---
Anesthesia Note - Progress Notes Anesthesia Progress Note: Post OP Anesthesia Note Pt is lying in bed, alert and oriented. She states that she feels much better today. Her pain is well under control. She remains NPO, and states she has only had nausea with opioids for pain. While visiting with the patient she had the onset of vertigo which she has regularly as reported by the . Nursing staff was present and were going to get order from the hospitalist for meclizine. Current VSS. Vital Signs (Last 8 hours) Temp Pulse Resp BP Pulse Ox 10/15/17 13:00 74 10 L 125/65 97 10/15/17 12:00 76 9 L 119/62 96 10/15/17 11:00 97.0 F 73 10 L 124/60 97 10/15/17 10:00 72 8 L 100/64 96 10/15/17 09:00 96.8 F 69 10 L 112/65 96 10/15/17 08:00 75 10 L 122/65 95 10/15/17 06:51 97.5 F 80 7 L 129/75 93
[2017-10-15] MEDS ORDERED: Ertapenem Inj 1 GM in Sodium Chloride 0.9% 100 ML IV SCH (20:00)
[2017-10-16] MEDS: KETOROLAC 15 MG/1 ML VIAL IVP SCH ×2 (01:18→07:41)
[2017-10-16] MEDS: HYDROmorphone 2 MG/1 ML IVP PRN (04:38)
[2017-10-16 05:20] LABS: BASOPHILS # (AUTO) 0 10*3/UL; BASOPHILS % (AUTO) 0 % (0-1); EOSINOPHILS # (AUTO) 0.07 10*3/UL; EOSINOPHILS % (AUTO) 0.9 % (0-8); Hematocrit [HCT] 29.5 % (37.0-47.0); Hemoglobin [HGB] 9.3 g/dL (12.0-16.0); LYMPHOCYTES # (AUTO) 1.34 10*3/uL; MEAN CORPUSCULAR HEMOGLOBIN 29.4 PG (27-31); MEAN CORPUSCULAR HGB CONC 31.5 g/dL (33-37); MEAN CORPUSCULAR VOLUME 93.4 FL (81-99); MONOCYTES % (AUTO) 2.5 % (5-15); PLATELET MORPHOLOGY COMMENT NORMAL MORPHOLOGY (NORM); RBC MORPHOLOGY COMMENT NORMAL MORPHOLOGY (NORM); RED BLOOD COUNT 3.16 10^6/uL (4.20-5.40); WBC MORPHOLOGY COMMENT NORMAL MORPHOLOGY (NORM)
[2017-10-16 05:31] LABS: BLOOD UREA NITROGEN 11 mg/dL (7-22); BUN/CREATININE RATIO 13.75 (6-20); SERUM ALBUMIN 2.9 g/dL (3.5-4.8)
[2017-10-16] MEDS: 1/2NS + 20mEq KCL 1,000 ML PRIMARY IV SCH ×4 (06:54→19:44)
--- NOTE | 2017-10-16 07:41 | PDOC(PROG) ---
Date and Time of Service: 10/16/2017 7:40 AM Interval History: Subjective Patient feels a lot better than when she came in. She rates her abdominal pain maybe 3 out of 10. Pain seemed to be controlled with the current pain medications. No nausea today. She did have some nausea yesterday. She started ice chips last night. No shortness of breath. Objective : Data - Labs CBC and BMP: 10/16/17 04:40 10/16/17 04:40 Objective : Exam - General General Appearance: No Acute Distress, Cooperative - Head Head Exam: Normal Inspection - Eye Eye Exam: Normal Appearance - ENT ENT Exam: Normal Exam - Neck Neck Exam: Normal Inspection - Respiratory Respiratory Exam: Clear to Auscultation - Bilaterally - Cardiovascular Cardiovascular Exam: RRR - GI/Abdominal GI/Abdominal Exam: Normal Bowel Sounds, Non Tender, Soft Additional GI/Abdominal Exam Details: Abdomen is softsignificant tenderness. Dressing applied. Colostomy in place. No stool in the bag. - Extremities Extremities Exam: Normal Inspection - Back Back Exam: Normal Inspection - Neurological Neurological Exam: Alert, Oriented x 3, CN II-XII Intact, Speech Intact / Clear , Moves All Extremities Equally - Psychiatric Psychiatric Exam: Normal Affect - Integumentary Integumentary Exam: Normal Color Assessment and Plan - Patient Problems (1) Sigmoid diverticulitis Current Visit: Yes Status: Acute Comment: Status post surgery. She is on IV antibiotics continue. On ice chips. We'll move her out of the ICU to the medical floor. Code(s): K57.32 - Diverticulitis of large intestine without perforation or abscess without bleeding (2) Bowel perforation Current Visit: Yes Status: Acute Comment: Status post surgery. She is on supportive treatment. I'll leave it up to Dr. Santoyo to decide when to start clear liquid. Code(s): K63.1 - Perforation of intestine (nontraumatic) (3) Atrial fibrillation Current Visit: Yes Status: Acute Comment: She is in sinus rhythm now. She is on Coreg continue. Continue holding the diltiazem for another day. Code(s): I48.91 - Unspecified atrial fibrillation Qualifiers: Atrial fibrillation type: chronic Qualified Code(s): I48.2 - Chronic atrial fibrillation (4) Asthma Current Visit: Yes Status: Acute Comment: We'll restart her Singulair. Code(s): J45.909 - Unspecified asthma, uncomplicated Qualifiers: Asthma severity: mild Asthma persistence: intermittent Asthma complication type: uncomplicated Qualified Code(s): J45.20 - Mild intermittent asthma, uncomplicated (5) HTN (hypertension) Current Visit: Yes Status: Acute Comment: Continue Coreg. Code(s): I10 - Essential (primary) hypertension Qualifiers: Hypertension type: essential hypertension Qualified Code(s): I10 - Essential (primary) hypertension (6) Hypercholesterolemia Current Visit: Yes Status: Chronic Comment: Restart pravastatin tomorrow. Code(s): E78.00 - Pure hypercholesterolemia, unspecified (7) Hypothyroidism Current Visit: Yes Status: Chronic Comment: Restart synthroid tomorrow Code(s): E03.9 - Hypothyroidism, unspecified Qualifiers: Hypothyroidism type: acquired Qualified Code(s): E03.9 - Hypothyroidism, unspecified (8) Hypokalemia Current Visit: Yes Status: Acute Comment: This is replaced Code(s): E87.6 - Hypokalemia (9) Hypomagnesemia Current Visit: Yes Status: Acute Comment: This is replaced Code(s): E83.42 - Hypomagnesemia (10) DVT prophylaxis Current Visit: Yes Status: Acute Comment: She is on SCDs and she will be started on Lovenox today. We'll discuss with the Dr. Santoyo on how long he wants her to be on the Toradol scheduled. (11) Postoperative anemia due to acute blood loss Current Visit: Yes Status: Acute Comment: She has some mild anemia probably secondary to postoperative blood loss. Will watch will repeat her labs tomorrow. Code(s): D62 - Acute posthemorrhagic anemia
[2017-10-16] MEDS ORDERED: ALBUTEROL SULFATE 2.5 MG/3 ML NEB PRN (07:43)
[2017-10-16] MEDS ORDERED: ONDANSETRON 4 MG/2 ML VIAL IVP PRN (07:43)
[2017-10-16] MEDS ORDERED: HYDROmorphone 2 MG/1 ML IVP PRN (07:43)
[2017-10-16] MEDS ORDERED: Acetaminophen 1000mg Inj 1,000 MG/100 ML VIAL IV PRN (07:43)
[2017-10-16] MEDS ORDERED: Prochlorperazine Edisylate Inj 10mg/2ml vial IVP PRN (07:43)
[2017-10-16] MEDS: ENOXAPARIN SODIUM 40 MG/0.4 ML SYRINGE SUBCUT SCH (08:40)
[2017-10-16] MEDS: CARVEDILOL 6.25 MG TABLET PO SCH ×2 (08:41→21:04)
[2017-10-16] MEDS: Montelukast Tab 10 MG TAB PO SCH (08:44)
[2017-10-16] MEDS: PANTOPRAZOLE IV 40 MG VIAL IVP SCH (08:50)
[2017-10-16] MEDS ORDERED: ENOXAPARIN SODIUM 40 MG/0.4 ML SYRINGE SUBCUT SCH (09:00)
[2017-10-16] MEDS ORDERED: KETOROLAC 15 MG/1 ML VIAL IVP SCH (13:00)
[2017-10-16] MEDS ORDERED: KETOROLAC 15 MG/1 ML VIAL IVP PRN (14:02)
--- NOTE | 2017-10-16 14:12 | PDOC(PROG) ---
Subjective Post Op Day: 1.5 Pain Management: IV Toradol, Tylenol, and Dilaudid. Mclaughlin Catheter: Yes Flatus: Yes Diet: NPO (With ice chips.) Ambulating: No Date and Time of Service: 10/16/2017-2 p.m. Interval History: Reports she feels better today. No nausea. Thirsty. Feeling some rumbling in her abdomen. There is some gas in her ostomy bag. Pain is well controlled. Ambulated minimally today at the time of her transfer. Took a few steps with a walker. She is using her incentive spirometer. Physical therapy has worked with her. No new complaints or problems. Objective : Data - Labs CBC and BMP: 10/16/17 04:40 10/16/17 04:40 - Vital Signs Vital Signs and I&O: Vital Signs - Last Taken Temperature 98.3 F 10/16/17 12:39 Pulse Rate 78 10/16/17 12:39 Respiratory Rate 18 10/16/17 12:39 Blood Pressure 162/65 10/16/17 12:39 Pulse Ox 92 10/16/17 12:39 Intake and Output (24hr x 4 totals) 10/14/17 10/15/17 10/16/17 10/17/17 05:59 05:59 05:59 05:59 Intake Total 494 / 494 2865 / 2865 155 / 155 Output Total 750 / 750 1000 / 1000 Balance -256 / -256 1865 / 1865 155 / 155 Objective : Exam - General General Appearance: No Acute Distress, Cooperative - Respiratory Respiratory Exam: Clear to Auscultation - Bilaterally, Breathing Non Labored - Cardiovascular Cardiovascular Exam: RRR, No Murmur - GI/Abdominal GI/Abdominal Exam: Soft, Hypoactive Bowel Sounds Additional GI/Abdominal Exam Details: Abdomen seems less distended. There is still incisional tenderness. No focal abdominal findings. The stoma is viable. There is gas in the bag. No significant stool output. - Neurological Neurological Exam: Alert, Oriented x 3 - Psychiatric Psychiatric Exam: Normal Affect, Normal Mood Assessment and Plan - Patient Problems (1) Perforation of sigmoid colon due to diverticulitis Current Visit: Yes Status: Acute Priority: High Onset Date: 10/14/17 Comment: Status post Lucia procedure. Doing well. Air is coming through the stoma. Pain control is better. Patient needs to ambulate. She needs to work on her incentive spirometer. Start her on clear liquids and follow her clinical course. Hemoglobin and hematocrit are low. I think a lot of this is dilutional. Minimal intraoperative blood loss. Postoperative course is unremarkable. Plan dressing changes tomorrow. Discussed the above with the patient and her . Continue postoperative care. Code(s): K57.20 - Diverticulitis of large intestine with perforation and abscess without bleeding
[2017-10-16] MEDS: MORPHINE SULFATE 2 MG/1 ML IVP PRN ×2 (18:16→23:34)
[2017-10-16] MEDS: Ertapenem Inj 1 GM in Sodium Chloride 0.9% 100 ML IV SCH (19:44)
[2017-10-17] MEDS ORDERED: LEVOTHYROXINE 75 MCG TABLET PO SCH (05:30)
[2017-10-17 05:33] LABS: BASOPHILS # (AUTO) 0 10*3/UL; BASOPHILS % (AUTO) 0 % (0-1); EOSINOPHILS # (AUTO) 0.09 10*3/UL; EOSINOPHILS % (AUTO) 1.4 % (0-8); Hematocrit [HCT] 29.7 % (37.0-47.0); Hemoglobin [HGB] 9.2 g/dL (12.0-16.0); MEAN CORPUSCULAR HEMOGLOBIN 28.9 PG (27-31); MEAN CORPUSCULAR VOLUME 93.4 FL (81-99); MEAN PLATELET VOLUME 10.9 FL (7.4-12.2); MONOCYTES # (AUTO) 0.17 10*3/UL (0.3-0.8); MONOCYTES % (AUTO) 2.7 % (5-15); NEUTROPHILS # (AUTO) 5.05 10*3/UL; NEUTROPHILS % (AUTO) 81.2 % (50-80); RED BLOOD COUNT 3.18 10^6/uL (4.20-5.40)
[2017-10-17] MEDS: MORPHINE SULFATE 2 MG/1 ML IVP PRN ×2 (05:44→11:01)
[2017-10-17 05:53] LABS: BLOOD UREA NITROGEN 8 mg/dL (7-22); BUN/CREATININE RATIO 11.42 (6-20); SERUM ALBUMIN 2.7 g/dL (3.5-4.8)
[2017-10-17] MEDS: LEVOTHYROXINE 50 MCG TABLET PO SCH (06:06)
[2017-10-17 06:23] LABS: PLATELET MORPHOLOGY COMMENT NORMAL MORPHOLOGY (NORM); RBC MORPHOLOGY COMMENT NORMAL MORPHOLOGY (NORM); WBC MORPHOLOGY COMMENT NORMAL MORPHOLOGY (NORM)
[2017-10-17] MEDS: PANTOPRAZOLE IV 40 MG VIAL IVP SCH (09:26)
[2017-10-17] MEDS: Montelukast Tab 10 MG TAB PO SCH (09:26)
[2017-10-17] MEDS: ENOXAPARIN SODIUM 40 MG/0.4 ML SYRINGE SUBCUT SCH (09:26)
[2017-10-17] MEDS: CARVEDILOL 6.25 MG TABLET PO SCH ×2 (09:27→20:18)
--- NOTE | 2017-10-17 10:01 | PDOC(PROG) ---
Date and Time of Service: 10/17/2017 9:59 AM Interval History: Subjective Patient did walk with physical therapy she somewhat tired. She thinks her pain is less today compared to yesterday. She said she tried broth last night and that didn't sit well with her but she didn't vomit. Nothing since then. She said she usually skips breakfast. I did tell her we need to see her oral intake including fluids to increase. She said she is the sucking on ice chips but not in other fluid. I think will see her intake and then will decide about whether stopping the IV fluid. Objective : Data - Labs CBC and BMP: 10/17/17 04:50 10/17/17 04:50 Objective : Exam - General General Appearance: No Acute Distress, Cooperative - Head Head Exam: Normal Inspection - Eye Eye Exam: Normal Appearance - ENT ENT Exam: Normal Exam - Neck Neck Exam: Normal Inspection - Respiratory Respiratory Exam: Clear to Auscultation - Bilaterally - Cardiovascular Cardiovascular Exam: RRR - GI/Abdominal GI/Abdominal Exam: Non Tender, Non Distended, Soft, No Organomegaly Additional GI/Abdominal Exam Details: Very sluggish cyst sounds. Colostomy in place. There is some air. - Rectal Rectal Exam: Deferred - External Exam: Deferred - Extremities Extremities Exam: Normal Inspection - Back Back Exam: Normal Inspection Assessment and Plan - Patient Problems (1) Sigmoid diverticulitis Current Visit: Yes Status: Acute Comment: Status post surgery, she is on Invanz continue. I did encourage her to increase oral intake so that we can aim to DC the fluid and maybe the catheter at think today if possible. Code(s): K57.32 - Diverticulitis of large intestine without perforation or abscess without bleeding (2) Bowel perforation Current Visit: Yes Status: Acute Comment: Status post surgery. Code(s): K63.1 - Perforation of intestine (nontraumatic) (3) Atrial fibrillation Current Visit: Yes Status: Acute Comment: Same medications Code(s): I48.91 - Unspecified atrial fibrillation Qualifiers: Atrial fibrillation type: chronic Qualified Code(s): I48.2 - Chronic atrial fibrillation (4) Asthma Current Visit: Yes Status: Acute Comment: Continue Singulair Code(s): J45.909 - Unspecified asthma, uncomplicated Qualifiers: Asthma severity: mild Asthma persistence: intermittent Asthma complication type: uncomplicated Qualified Code(s): J45.20 - Mild intermittent asthma, uncomplicated (5) HTN (hypertension) Current Visit: Yes Status: Acute Comment: Continue metoprolol. We'll restart the Cardizem tomorrow Code(s): I10 - Essential (primary) hypertension Qualifiers: Hypertension type: essential hypertension Qualified Code(s): I10 - Essential (primary) hypertension (6) Hypercholesterolemia Current Visit: Yes Status: Chronic Comment: Same med Code(s): E78.00 - Pure hypercholesterolemia, unspecified (7) Hypothyroidism Current Visit: Yes Status: Chronic Comment: Same med Code(s): E03.9 - Hypothyroidism, unspecified Qualifiers: Hypothyroidism type: acquired Qualified Code(s): E03.9 - Hypothyroidism, unspecified (8) Hypokalemia Current Visit: Yes Status: Acute Comment: Normalized Code(s): E87.6 - Hypokalemia (9) Hypomagnesemia Current Visit: Yes Status: Acute Comment: Normalized Code(s): E83.42 - Hypomagnesemia (10) DVT prophylaxis Current Visit: Yes Status: Acute Comment: She is on Lovenox (11) Postoperative anemia due to acute blood loss Current Visit: Yes Status: Acute Comment: Her hemoglobin is stable. Code(s): D62 - Acute posthemorrhagic anemia
--- NOTE | 2017-10-17 11:19 | PT.PROG ---
Progress Note Progress Note: S: Pt. states she is sore and having some pain. Otherwise doing well. O: Treatment consisted of functional activities: bed mobility with min assist x 1, and ambulated in the hallway with use of FWW and 1L 02 and CGA x 1 x 50 feet x 1. She then was assisted into her bed and placed sidelying and a hot pack was placed on her low back for pain. Nursing notified. A: Pt. is able to increase her distance with walking today. She did much better with the FWW. She is improving with bed mobility and limited most by pain. Ostomy care has been diverted to nursing. P: Continue per POC to increase strength and activity tolerance. 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
--- NOTE | 2017-10-17 11:59 | PDOC(PROG) ---
Subjective Post Op Day: 2.5 Pain Management: IV morphine, Tylenol, and Toradol. Mclaughlin Catheter: Yes Flatus: Yes Diet: Clear Liquids Ambulating: Yes Date and Time of Service: 10/17/2017 patient seen at 11:30 AM Interval History: Better every day. Tolerating some clear liquids and Jell-O. No nausea or heartburn. She is not hungry right now. She is tired after physical therapy. Pain is fairly well controlled. It does hurt to move. She is feeling some rumbling in her abdomen. She has no specific complaints. There is some gas in her stoma bag. Discussed her progress with the patient and her . Objective : Data - Labs CBC and BMP: 10/17/17 04:50 10/17/17 04:50 - Vital Signs Vital Signs and I&O: Vital Signs - Last Taken Temperature 98.7 F 10/17/17 04:20 Pulse Rate 86 10/17/17 04:20 Respiratory Rate 14 10/17/17 07:00 Blood Pressure 153/72 10/17/17 04:20 Pulse Ox 90 10/17/17 04:20 Intake and Output (24hr x 4 totals) 10/15/17 10/16/17 10/17/17 10/18/17 05:59 05:59 05:59 05:59 Intake Total 494 / 494 2865 / 2865 1711 / 1711 240 / 240 Output Total 750 / 750 1000 / 1000 2975 / 2975 Balance -256 / -256 1865 / 1865 -1264 / -1264 240 / 240 Objective : Exam - General General Appearance: No Acute Distress, Cooperative - Respiratory Respiratory Exam: Clear to Auscultation - Bilaterally, Breathing Non Labored - Cardiovascular Cardiovascular Exam: RRR, No Murmur - GI/Abdominal GI/Abdominal Exam: Non Distended, Soft, Hypoactive Bowel Sounds Additional GI/Abdominal Exam Details: The stoma is viable. There is air in the stoma bag. The dressing was removed. The packing was removed. There are no signs of infection. The packing was replaced and the incision was redressed. The abdomen is soft with improved bowel tones. It is not distended. There is some incisional tenderness. - Neurological Neurological Exam: Alert, Oriented x 3 - Psychiatric Psychiatric Exam: Normal Affect, Normal Mood Assessment and Plan - Patient Problems (1) Perforation of sigmoid colon due to diverticulitis Current Visit: Yes Status: Acute Priority: High Onset Date: 10/14/17 Comment: Doing very well status post Lucia procedure. Still needs to move and work on her spirometer more. We'll increase her to a full liquid diet and cut back on her IV fluids. Have changed some orders regarding pain management. Check a.m. labs. Continue postoperative care. No significant changes at this time. Code(s): K57.20 - Diverticulitis of large intestine with perforation and abscess without bleeding
[2017-10-17] MEDS: KETOROLAC 15 MG/1 ML VIAL IVP SCH ×2 (12:12→17:16)
[2017-10-17] MEDS: 1/2NS + 20mEq KCL 1,000 ML PRIMARY IV SCH (12:36)
[2017-10-17] MEDS: Acetaminophen 1000mg Inj 1,000 MG/100 ML VIAL IV SCH (17:16)
[2017-10-17] MEDS: Pravastatin Tab 40 MG TAB PO SCH (20:18)
[2017-10-17] MEDS: Ertapenem Inj 1 GM in Sodium Chloride 0.9% 100 ML IV SCH (20:20)
[2017-10-18] MEDS: KETOROLAC 15 MG/1 ML VIAL IVP SCH ×4 (00:34→17:08)
[2017-10-18] MEDS: Acetaminophen 1000mg Inj 1,000 MG/100 ML VIAL IV SCH ×3 (00:34→17:09)
[2017-10-18] MEDS: LEVOTHYROXINE 50 MCG TABLET PO SCH (04:42)
[2017-10-18 05:18] LABS: BASOPHILS # (AUTO) 0.01 10*3/UL; BASOPHILS % (AUTO) 0.2 % (0-1); EOSINOPHILS # (AUTO) 0.09 10*3/UL; Hematocrit [HCT] 28.4 % (37.0-47.0); LYMPHOCYTES # (AUTO) 1.05 10*3/uL; MEAN CORPUSCULAR HEMOGLOBIN 29.2 PG (27-31); MEAN CORPUSCULAR HGB CONC 31.7 g/dL (33-37); MEAN CORPUSCULAR VOLUME 92.2 FL (81-99); MEAN PLATELET VOLUME 10.2 FL (7.4-12.2); MONOCYTES # (AUTO) 0.21 10*3/UL (0.3-0.8); MONOCYTES % (AUTO) 4.7 % (5-15); NEUTROPHILS % (AUTO) 68.9 % (50-80); RED BLOOD COUNT 3.08 10^6/uL (4.20-5.40)
[2017-10-18 05:22] LABS: BLOOD UREA NITROGEN 7 mg/dL (7-22); SERUM ALBUMIN 2.9 g/dL (3.5-4.8)
[2017-10-18 05:49] LABS: PLATELET MORPHOLOGY COMMENT NORMAL MORPHOLOGY (NORM); RBC MORPHOLOGY COMMENT NORMAL MORPHOLOGY (NORM); WBC MORPHOLOGY COMMENT NORMAL MORPHOLOGY (NORM)
--- NOTE | 2017-10-18 09:16 | PDOC(PROG) ---
Subjective Post Op Day: 3.5 Pain Management: IV Tylenol and IV Toradol. Mclaughlin Catheter: Yes Flatus: Yes Diet: full liquids Ambulating: Yes Date and Time of Service: 10/18/2017 9 AM Interval History: Patient reports she is doing better every day. Tolerating some full liquids. Did have some nausea through the night but that has resolved. Has some cream of wheat this morning. No nausea or heartburn. Her stoma is putting out air but no stool. Her pain is well controlled. She is now ambulating in the halls. Neither the patient on her have much interest in stoma care or wound care. We will need to work on that as she may have an open wound when she is ready to leave and she will certainly have the stoma. They are talking about maybe flying her back to [place]. I told her to call her primary care doctor and let them know that she has had surgery. Records will be sent with the patient. Objective : Data - Labs CBC and BMP: 10/18/17 04:43 10/18/17 04:43 - Vital Signs Vital Signs and I&O: Vital Signs - Last Taken Temperature 97.8 F 10/18/17 07:20 Pulse Rate 74 10/18/17 07:20 Respiratory Rate 20 10/18/17 07:20 Blood Pressure 163/82 10/18/17 07:20 Pulse Ox 94 10/18/17 07:20 Intake and Output (24hr x 4 totals) 10/16/17 10/17/17 10/18/17 10/19/17 05:59 05:59 05:59 05:59 Intake Total 2865 / 2865 1711 / 1711 616 / 616 Output Total 1000 / 1000 2975 / 2975 3125 / 3125 Balance 1865 / 1865 -1264 / -1264 -2509 / -2509 Objective : Exam - General General Appearance: No Acute Distress, Cooperative - Respiratory Respiratory Exam: Clear to Auscultation - Bilaterally, Breathing Non Labored - Cardiovascular Cardiovascular Exam: RRR, No Murmur - GI/Abdominal GI/Abdominal Exam: Normal Bowel Sounds, Non Distended, Soft Additional GI/Abdominal Exam Details: The stoma is pink and viable. It is putting out air. No stool. The incision is clean. No drainage. Dressing change done. Abdomen is soft and nondistended. Much improved bowel tones. Tenderness seems incisional only. - Extremities Extremities Exam: +1 Edema - Neurological Neurological Exam: Alert, Oriented x 3 - Psychiatric Psychiatric Exam: Normal Affect, Normal Mood Assessment and Plan - Patient Problems (1) Perforation of sigmoid colon due to diverticulitis Current Visit: Yes Status: Acute Priority: High Onset Date: 10/14/17 Comment: Status post Lucia procedure. Doing well. Stoma is putting out air. She does not feel ready for regular food. We'll continue full liquids today with the plan to go to soft diet tomorrow. We will discontinue her oxygen and her Mclaughlin. Need to start working on ostomy and wound care. Otherwise continue postoperative care. I told the patient and her probably 2 more days in the hospital pending her clinical course. Code(s): K57.20 - Diverticulitis of large intestine with perforation and abscess without bleeding
[2017-10-18] MEDS: DILTIAZEM CD 240 MG CAP PO SCH (09:39)
[2017-10-18] MEDS: HYDROcodone-APAP 5 MG -325 MG TABLET PO PRN ×2 (09:39→17:09)
[2017-10-18] MEDS: CARVEDILOL 6.25 MG TABLET PO SCH ×2 (09:39→20:08)
[2017-10-18] MEDS: Montelukast Tab 10 MG TAB PO SCH (09:40)
[2017-10-18] MEDS: ENOXAPARIN SODIUM 40 MG/0.4 ML SYRINGE SUBCUT SCH (09:40)
--- NOTE | 2017-10-18 10:22 | OT.PROG ---
Progress Note Progress Note: Occupational Therapy: 35 min S: pt stated she was tired due to lack of sleep but was willing to participate in therapy. O: pt completed bed mobility independently. pt completed functional transfer from EOB to standing with MIN A for standing and use of FWW. pt completed UE dressing independently with set up. pt completed LE dressing MAX A by nursing staff. pt completed functional ambulation x 90' with FWW and CGA for safety. pt completed BUE AROM exercises of flexion x10, abduction x10, IROT/EROT x10, chest flies x10, biceps x10, shoulder rolls x10, shoulder rows x10. A: pt tolerated session well. pt refused associate embalmer/funeral director and sock aide due to pts wanting to assist pt with dressing tasks. P: continue POC
[2017-10-18] MEDS: PANTOPRAZOLE IV 40 MG VIAL IVP SCH (10:47)
--- NOTE | 2017-10-18 11:04 | PTI REPORT ---
Thank you for the referral of Sumit Melanie. She was seen on for an inpatient evaluation secondary to weakness due to recent abdominal surgery. SUBJECTIVE: The patient is a 76-year-old female who was traveling with her and was at her camper at the [employer] [place] here in [place] when she had an issue with her diverticulitis. She had to undergo surgery while here in [place] via Dr. Santoyo and she is currently in the hospital receiving osteotomy care and colostomy training and has been asked for a physical therapy consult. Her pain is her biggest deterrent for movement. The patient is traveling with her and they plan to continue their travels once she heals up. PAST MEDICAL HISTORY: Past medical history can be found in the patient's medical record. OBJECTIVE FINDINGS: Pain: The patient rates her pain at a 7 or an 8/10 on the verbal analog scale (0 =no pain, 10=worst pain). Bed mobility: The patient needs minimal to moderate assist of one to come from supine to sit due to pain. Transfers: The patient is able to transfer from sit to stand with minimal assist of one. Ambulation: The patient ambulated 5 feet from her ICU bed to her new room in 311 with stand by assist of one. Again, pain is her biggest deterrent from walking, transfers, or mobility. Range of motion: The patient demonstrates functional range of motion of her shoulders and lower extremities. Strength: The patient demonstrates strength of 3/5 in both upper extremities. Lower extremity strength is 3-/5 at the hips and knees. Ankles and feet have fair sensation. ASSESSMENT: Problem List: Increased pain Decreased ability to perform bed mobility Decreased ability to perform transfers Decreased ability to perform ambulation Short-Term Goals: To be met by discharge from inpatient: Patient will be able to transfer from bed to stand independently. Patient will be able to ambulate 100 feet with least restrictive assistive device independently. Patient will be able to ascend and descend 3 stairs with least restrictive assistive device independently. Patient will have lower extremity strength of 4/5 or greater. Long-Term Goals: To be met following discharge from inpatient: Patient will be discharged and [place] , independent with all ADLs. TREATMENT PLAN: Patient will be seen B.I.D during the week and one time per day over the weekend as an inpatient for strengthening of uppers and lowers, transfer training, and ambulation. INITIAL TREATMENT: Treatment today consisted of the initial evaluation activities only. We showed her how to do some abdominal bracing with a pillow just to try to help her with some transfers. STEPH
--- NOTE | 2017-10-18 11:28 | PDOC(PROG) ---
Date and Time of Service: 10/18/2017 11:25 AM Interval History: Subjective Patient walked earlier with physical therapy she's feeling tired now. Pain seems to be controlled. She is on full liquid diet now. Dr. Santoyo DC her IV fluid and the Mclaughlin. She is still feeling weak. Objective : Data - Labs CBC and BMP: 10/18/17 04:43 10/18/17 04:43 Objective : Exam - General General Appearance: No Acute Distress, Cooperative - Head Head Exam: Normal Inspection - Eye Eye Exam: Normal Appearance - ENT ENT Exam: Normal Exam - Neck Neck Exam: Normal Inspection - Respiratory Respiratory Exam: Clear to Auscultation - Bilaterally - Cardiovascular Cardiovascular Exam: RRR - GI/Abdominal GI/Abdominal Exam: Normal Bowel Sounds, Non Tender, Non Distended, Soft, No Organomegaly Additional GI/Abdominal Exam Details: Colostomy in place is only air. - Rectal Rectal Exam: Deferred - External Exam: Deferred - Extremities Extremities Exam: Normal Inspection - Back Back Exam: Normal Inspection - Neurological Neurological Exam: Alert, Oriented x 3, CN II-XII Intact, Speech Intact / Clear Assessment and Plan - Patient Problems (1) Sigmoid diverticulitis Current Visit: Yes Status: Acute Comment: Continue antibiotics. Code(s): K57.32 - Diverticulitis of large intestine without perforation or abscess without bleeding (2) Bowel perforation Current Visit: Yes Status: Acute Comment: She is status post surgery. Continue PT and OT she is weak. I did talk to her about maybe swing bed status and she is open to that. I think we' ll talk with the neighborhood planner maybe tomorrow I think once we have somthing in the colostomy bag and she is eating better we will think about switching her. Code(s): K63.1 - Perforation of intestine (nontraumatic) (3) Atrial fibrillation Current Visit: Yes Status: Acute Comment: Continue same medications. She is back on the metoprolol and Cardizem. Code(s): I48.91 - Unspecified atrial fibrillation Qualifiers: Atrial fibrillation type: chronic Qualified Code(s): I48.2 - Chronic atrial fibrillation (4) Asthma Current Visit: Yes Status: Acute Comment: Continue Singulair Code(s): J45.909 - Unspecified asthma, uncomplicated Qualifiers: Asthma severity: mild Asthma persistence: intermittent Asthma complication type: uncomplicated Qualified Code(s): J45.20 - Mild intermittent asthma, uncomplicated (5) HTN (hypertension) Current Visit: Yes Status: Acute Comment: Same medications Code(s): I10 - Essential (primary) hypertension Qualifiers: Hypertension type: essential hypertension Qualified Code(s): I10 - Essential (primary) hypertension (6) Hypercholesterolemia Current Visit: Yes Status: Chronic Comment: Same med Code(s): E78.00 - Pure hypercholesterolemia, unspecified (7) Hypothyroidism Current Visit: Yes Status: Chronic Comment: Continue Synthroid Code(s): E03.9 - Hypothyroidism, unspecified Qualifiers: Hypothyroidism type: acquired Qualified Code(s): E03.9 - Hypothyroidism, unspecified (8) DVT prophylaxis Current Visit: Yes Status: Acute Comment: She is on Lovenox (9) Postoperative anemia due to acute blood loss Current Visit: Yes Status: Acute Comment: Her hemoglobin is stable. Did drop I think is dilutional we stopped the fluid. Code(s): D62 - Acute posthemorrhagic anemia
--- NOTE | 2017-10-18 12:10 | OTI REPORT ---
Thank you for the referral of Sumit Simms was seen on 10/17/17 for an occupational therapy inpatient evaluation status post abdominal surgery. SUBJECTIVE: The patient is a 76-year-old female who was traveling through [place] when all of the sudden she stated she got very severe abdominal cramping. She and her are from [place]. Her was present during the session today. Prior to admission the patient was very independent with all of her ADLs and functional tasks including driving. The patient was making dinner when she had severe abdominal pain. She went to the ER and within an hour she stated she was in surgery. PAST MEDICAL HISTORY: Past medical history can be found in the patient's medical record. OBJECTIVE FINDINGS: Bed mobility: The patient was able to come from supine to sit with mod assist. Range of motion: While sitting edge of bed she did have some stomach pain; however, the patient was able to actively move upper extremities from 0 to 150 degrees of flexion and 130 of abduction. Elbow and wrist range of motion were within functional limits. Strength: Strength was not formally assessed as she does have some lifting precautions with her abdominal surgery. The patient is moving very slowly and requires increased time to make movements. Activities of daily living: The patient requires max assist for lower extremity dressing secondary to abdominal pain. She was able to bring her feet to mid cardona to try to doff socks; however, this increased her pain in her stomach. Transfers: The patient requires contact guard to min assist to transfer from sit to stand and requires increased time secondary to abdominal pain. ASSESSMENT: We will assess the patient's pain levels tomorrow and her ability to move lower extremities for dressing tasks. She may benefit from a inspector pawnshop detail or sock aide, but we will give her at least one more day to see if her pain levels decrease and see if she is feeling better. She would also benefit from active range of motion and breathing techniques during exercise to improve her overall activity tolerance. The therapist did speak with Dr. Santoyo and he wants her up and moving at least three times a day to decrease chances of pneumonia or other illnesses. Problem List: Decreased ability to perform ADLs Decreased activity tolerance Short-Term Goals: To be met by discharge from inpatient: Patient will be able to dress self with or without adaptive equipment with modified independence. Patient will be able to complete a toilet transfer independently. Patient will be able to tolerate 15 minutes of functional reaching tasks with upper extremities to improve her overall activity tolerance for ADLs. Patient will be able to complete functional transfers to the shower, toilet, and bed with stand by assistance. Long-Term Goals: To be met following discharge from inpatient: Patient will be able to be discharged, demonstrating independence or modified independence with all ADLs and functional transfers. TREATMENT PLAN: Patient will be seen B.I.D during the week and one time per day over the weekend as an inpatient to address the above goals and objectives. INITIAL TREATMENT: Treatment today consisted of the initial evaluation followed by the patient sitting edge of bed with mod assist. While sitting edge of bed she completed 10 repetitions of shoulder active motion for flexion, elbow flexion/extension, and wrist flexion/extension with bilateral upper extremities. She also completed two sit to stands with min assist. She then scooted to the top of the bed with min assist and transferred from sit to supine with mod assist. She was positioned with the pillow underneath her legs and her leg compression on. Her treatment session was reported to Dr. Santoyo as well as to Dr. Bhatt. STEPH
--- NOTE | 2017-10-18 12:15 | PT.PROG ---
Progress Note Progress Note: S: pt stated she was tired due to lack of sleep but was willing to participate in therapy. Pt stated that she started to feel nauseous after performing exercise. O: pt completed BLE AROM exercises of hip flexion 2x10, knee extension 2x10, PF /DF 2x10. Pt was wheeled back to room and did not ambulate as planned due to nausea. Pt was transferred to chair from wheel chair with FWW and CGA x1. Pt was left in chair. A: pt tolerated session, however began to feel nauseous after exercise. P: continue POC
--- NOTE | 2017-10-18 16:38 | OT.PROG ---
Progress Note Progress Note: Occupational Therapy: 15 min S: pt stated she was tired but willing to complete therapy. O: pt completed UE AROM exercises of biceps x10, chest flies x10, flexion x10, abduction x10, shoulder rows z10, shoulder shrugs x10, shoulder rolls x10, pronation/supination x10, IROT/EROT x10. moist heat was applied to pts back x15 min. A: pt was able to move through exercises faster this afternoon than this morning. pt was less stiff as well. P: continue POC
--- NOTE | 2017-10-18 16:55 | PT.PROG ---
Progress Note Progress Note: S. Patient stated that she is very tired this afternoon. She reported that she would be willing to walk more this afternoon. O. Patient ambulated 175 feet to the therapy gym. A. Patient tolerated ambulation well, she continues to have weakness however was able to ambulate further this afternoon compared to previous treatments. P. Continue POC.
[2017-10-18] MEDS: Pravastatin Tab 40 MG TAB PO SCH (20:08)
[2017-10-18] MEDS: Ertapenem Inj 1 GM in Sodium Chloride 0.9% 100 ML IV SCH (20:08)
[2017-10-19] MEDS: KETOROLAC 15 MG/1 ML VIAL IVP SCH ×3 (00:28→12:26)
[2017-10-19] MEDS: Acetaminophen 1000mg Inj 1,000 MG/100 ML VIAL IV SCH ×2 (00:59→09:14)
[2017-10-19] MEDS: LEVOTHYROXINE 50 MCG TABLET PO SCH (05:06)
[2017-10-19] MEDS: PANTOPRAZOLE 40 MG TABLET PO SCH (07:08)
--- NOTE | 2017-10-19 09:04 | PDOC(PROG) ---
Date and Time of Service: 10/19/2017 9 AM Interval History: Subjective Patient feels better. Pain seemed to be controlled. She did walk with physical therapy around the nurses station today. There is a stool noted in the colostomy bag. Objective : Data - Labs CBC and BMP: 10/18/17 04:43 10/18/17 04:43 Objective : Exam - General General Appearance: No Acute Distress - Head Head Exam: Normal Inspection - Eye Eye Exam: Normal Appearance - ENT ENT Exam: Normal Exam - Neck Neck Exam: Normal Inspection - Respiratory Respiratory Exam: Clear to Auscultation - Bilaterally - Cardiovascular Cardiovascular Exam: RRR - GI/Abdominal GI/Abdominal Exam: Normal Bowel Sounds, Non Tender, Non Distended, Soft Additional GI/Abdominal Exam Details: Dressing applied the mid abdomen. Colostomy bag in place, stools noted. - Rectal Rectal Exam: Deferred - External Exam: Deferred Exam: Deferred - Extremities Extremities Exam: Normal Inspection - Back Back Exam: Normal Inspection - Neurological Neurological Exam: Alert, Oriented x 3, CN II-XII Intact, No Facial Droop, Speech Intact / Clear, Moves All Extremities Equally - Psychiatric Psychiatric Exam: Normal Affect Assessment and Plan - Patient Problems (1) Sigmoid diverticulitis Current Visit: Yes Status: Acute Comment: She is on antibiotics continue. We'll talk with Dr. Santoyo about switching her to swing bed she is weak and needs some time before she would be able to go back home. Will consider to switch her to oral antibiotics. Code(s): K57.32 - Diverticulitis of large intestine without perforation or abscess without bleeding (2) Bowel perforation Current Visit: Yes Status: Acute Comment: Status post surgery Code(s): K63.1 - Perforation of intestine (nontraumatic) (3) Atrial fibrillation Current Visit: Yes Status: Acute Comment: Continue Coreg Code(s): I48.91 - Unspecified atrial fibrillation Qualifiers: Atrial fibrillation type: chronic Qualified Code(s): I48.2 - Chronic atrial fibrillation (4) Asthma Current Visit: Yes Status: Acute Comment: Same med Code(s): J45.909 - Unspecified asthma, uncomplicated Qualifiers: Asthma severity: mild Asthma persistence: intermittent Asthma complication type: uncomplicated Qualified Code(s): J45.20 - Mild intermittent asthma, uncomplicated (5) HTN (hypertension) Current Visit: Yes Status: Acute Comment: Continue Coreg and diltiazem Code(s): I10 - Essential (primary) hypertension Qualifiers: Hypertension type: essential hypertension Qualified Code(s): I10 - Essential (primary) hypertension (6) Hypercholesterolemia Current Visit: Yes Status: Chronic Comment: Same med Code(s): E78.00 - Pure hypercholesterolemia, unspecified (7) Hypothyroidism Current Visit: Yes Status: Chronic Comment: Same medication Code(s): E03.9 - Hypothyroidism, unspecified Qualifiers: Hypothyroidism type: acquired Qualified Code(s): E03.9 - Hypothyroidism, unspecified (8) DVT prophylaxis Current Visit: Yes Status: Acute Comment: She is on Lovenox (9) Postoperative anemia due to acute blood loss Current Visit: Yes Status: Acute Comment: This is been stable Code(s): D62 - Acute posthemorrhagic anemia
[2017-10-19] MEDS: Montelukast Tab 10 MG TAB PO SCH (09:14)
[2017-10-19] MEDS: DILTIAZEM CD 240 MG CAP PO SCH (09:14)
[2017-10-19] MEDS: CARVEDILOL 6.25 MG TABLET PO SCH ×2 (09:14→21:08)
[2017-10-19] MEDS: ENOXAPARIN SODIUM 40 MG/0.4 ML SYRINGE SUBCUT SCH (09:14)
[2017-10-19] MEDS: CARTIA XT 240 MG PO SCH (10:15)
--- NOTE | 2017-10-19 12:13 | OT.PROG ---
Progress Note Progress Note: S: pt was in her bed upon arrival. she was ready for therapy. O: pt was able to complete supine to sit EOb with the bed in a full upright position with mod I. She reported that they refused the legal consultant and sock aid because her is going to do those for her. She was able to complete a sit to stand with CGA. she ambulated to the sink where she completed standing grooming tasks. she then ambulated 70 feet and transferred into a W/C and was brought down to therapy for PT services. A: pt is doing well, she would benefit from increasing her endurance and to get home and be Ind in [facility]. P: pt will continue therapy to increase activity tolerance for Ind in her home
[2017-10-19] MEDS ORDERED: KETOROLAC 15 MG/1 ML VIAL IVP PRN (14:15)
--- NOTE | 2017-10-19 14:19 | PT.PROG ---
Progress Note Progress Note: S: Pt states she is feeling "much better than yesterday" and stronger today. Reports no pain. She reports some nausea earlier today but is feeling ok currently. O: Tx consisted of AROM at hip, knee, and ankles 2x10 each; 5 sit to stands, and ambulation 150 feet. All STSs and ambulation required standard walker and CGA x1. Pt was wheeled in WC back to room and transferred from WC to supine in bed with CGA x1. Pt was left with call light and supine in bed waiting for lunch with . A: Pt has difficulty walking and transferring due to generalized weakness and healing post surgery. P: Continue with POC.
--- NOTE | 2017-10-19 14:21 | PDOC(PROG) ---
Subjective Post Op Day: 4.5 Pain Management: IV Tylenol and Toradol Mclaughlin Catheter: No Flatus: Yes Diet: full liquids. Ambulating: Yes Date and Time of Service: 10/19/2017 2 p.m. Interval History: Patient is doing well without complaints or problems. Her pain is well controlled. She is ambulating. She is voiding. She has had some stool output from her stoma. She has had some gas as well. She is hungry and feels ready to try a regular diet. She is still weak. She has no stamina. We will look at putting the patient on swing bed status tomorrow. I think by Tuesday she should be ready to travel home but that we will be one day at a time. Objective : Data - Labs CBC and BMP: 10/18/17 04:43 10/18/17 04:43 - Vital Signs Vital Signs and I&O: Vital Signs - Last Taken Temperature 98.2 F 10/19/17 13:00 Pulse Rate 65 10/19/17 13:00 Respiratory Rate 20 10/19/17 13:00 Blood Pressure 153/65 10/19/17 13:00 Pulse Ox 93 10/19/17 13:00 Intake and Output (24hr x 4 totals) 10/17/17 10/18/17 10/19/17 10/20/17 05:59 05:59 05:59 05:59 Intake Total 1711 / 1711 616 / 616 850 / 850 240 / 240 Output Total 2975 / 2975 3125 / 3125 2150 / 2150 525 / 525 Balance -1264 / -1264 -2509 / -2509 -1300 / -1300 -285 / -285 Objective : Exam - General General Appearance: No Acute Distress, Cooperative - Respiratory Respiratory Exam: Clear to Auscultation - Bilaterally, Breathing Non Labored - Cardiovascular Cardiovascular Exam: RRR, No Murmur - GI/Abdominal GI/Abdominal Exam: Normal Bowel Sounds, Non Distended, Soft Additional GI/Abdominal Exam Details: Stoma is viable and now functioning with both stool and air output. The incision looks great. Early granulation tissue forming. Dressing change done. Abdomen is soft with incisional tenderness. No longer distended. - Neurological Neurological Exam: Alert, Oriented x 3 - Psychiatric Psychiatric Exam: Normal Affect, Normal Mood Assessment and Plan - Patient Problems (1) Perforation of sigmoid colon due to diverticulitis Current Visit: Yes Status: Acute Priority: High Onset Date: 10/14/17 Comment: Improves every day. Regular diet. Stop IV antibiotics. Make her medications for pain control all as necessary. Check a.m. labs. Can probably transition to a swing bed tomorrow. I will check her wound prior to transfer. May be able to close it with IV sedation. Probable discharge approximately Tuesday. Discussed all the above with the patient, her , and Dr. Bhatt. Code(s): K57.20 - Diverticulitis of large intestine with perforation and abscess without bleeding
--- NOTE | 2017-10-19 16:32 | OT.PROG ---
Progress Note Progress Note: S: pt had just completed Pt services and was sore. she was hoping she could get some pain pills. nursing reported if she could hold out another 30 minutes they could get her tylenol. O: pt was supinein bed and completed 4 min on each arm of rom activities with no weight. 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 A: pt is doing well. she becomes fatigued towards the end of the day. P:cont per POC
--- NOTE | 2017-10-19 16:40 | PT.PROG ---
Progress Note Progress Note: S. Patient stated that she would like to go out side. O. Patient ambulated 200 feet to the wheelchair then was wheeled outside. Patient then ambulated 50 feet and was wheeled back to her room where she was left in bed with alarm and call light. A. Patient tolerated ambulation well, she became very fatigued after ambulation , she continues to require more strengthening and endurance at this time. P. continue POC.
[2017-10-19] MEDS: Acetaminophen 1000mg Inj 1,000 MG/100 ML VIAL IV PRN (16:44)
[2017-10-19] MEDS: Ertapenem Inj 1 GM in Sodium Chloride 0.9% 100 ML IV SCH (21:08)
[2017-10-19] MEDS: Pravastatin Tab 40 MG TAB PO SCH (21:08)
[2017-10-20] MEDS: Acetaminophen 1000mg Inj 1,000 MG/100 ML VIAL IV PRN ×2 (03:18→11:20)
[2017-10-20] MEDS: LEVOTHYROXINE 50 MCG TABLET PO SCH (04:41)
[2017-10-20 05:35] LABS: BLOOD UREA NITROGEN 8 mg/dL (7-22); BUN/CREATININE RATIO 11.42 (6-20); Hematocrit [HCT] 30.2 % (37.0-47.0); Hemoglobin [HGB] 10.1 g/dL (12.0-16.0); MEAN CORPUSCULAR HEMOGLOBIN 30.1 PG (27-31); MEAN CORPUSCULAR HGB CONC 33.4 g/dL (33-37); MEAN CORPUSCULAR VOLUME 89.9 FL (81-99); MEAN PLATELET VOLUME 9.7 FL (7.4-12.2); RED BLOOD COUNT 3.36 10^6/uL (4.20-5.40)
[2017-10-20 06:14] LABS: BAND NEUTROPHILS % 4 % (0-10); BASOPHILS % (MANUAL) 0 % (0-1); EOSINOPHILS % (MANUAL) 6 % (0-8); MONOCYTES % (MANUAL) 7 % (0-12); NEUTROPHILS % (MANUAL) 50 % (50-80); PLATELET MORPHOLOGY COMMENT NORMAL MORPHOLOGY (NORM); RBC MORPHOLOGY COMMENT NORMAL MORPHOLOGY (NORM); WBC MORPHOLOGY COMMENT NORMAL MORPHOLOGY (NORM)
[2017-10-20] MEDS: PANTOPRAZOLE 40 MG TABLET PO SCH (06:54)
[2017-10-20] MEDS: Montelukast Tab 10 MG TAB PO SCH (08:37)
[2017-10-20] MEDS: CARVEDILOL 6.25 MG TABLET PO SCH ×2 (08:37→21:10)
[2017-10-20] MEDS: ENOXAPARIN SODIUM 40 MG/0.4 ML SYRINGE SUBCUT SCH (08:37)
[2017-10-20] MEDS: CARTIA XT 240 MG PO SCH (08:37)
[2017-10-20] MEDS: VITAMIN D3 25 MCG PO SCH (09:55)
[2017-10-20] MEDS: CALCIUM CARBONATE 1000 MG PO SCH (09:55)
--- NOTE | 2017-10-20 11:52 | OT.PROG ---
Progress Note Progress Note: Attempt made at 11:40am 10-20-17 to bring pt to therapy, but was unable to do so due to physician appointment scheduled at that time. Marco BRUCE
[2017-10-20] MEDS ORDERED: Lactated Ringers 1,000 ML PRIMARY IV SCH (12:15)
[2017-10-20] MEDS ORDERED: Bacteriostatic NaCl Inj 30ml Vial ONE (12:19)
[2017-10-20] MEDS ORDERED: KETAMINE 100 MG/1 ML - 5 ML ONE (12:19)
[2017-10-20] MEDS ORDERED: MIDAZOLAM 5 MG/1 ML ONE (12:19)
[2017-10-20] MEDS ORDERED: PROPOFOL 10 MG/1 ML (200 MG/20 ML) VIAL IV ONE (12:22)
--- NOTE | 2017-10-20 12:26 | PDOC(PROG) ---
Date and Time of Service: 10/20/2017 12:28 PM Interval History: Subjective She did say that she had problems sleeping last night so she is tired. She did need some IV Tylenol this morning for pain. She said she will try working with physical therapy today. No other symptoms. Objective : Data - Labs CBC and BMP: 10/20/17 04:37 10/20/17 04:37 Objective : Exam - General General Appearance: No Acute Distress, Cooperative - Head Head Exam: Normal Inspection - Eye Eye Exam: Normal Appearance - ENT ENT Exam: Normal Exam - Neck Neck Exam: Normal Inspection - Respiratory Respiratory Exam: Clear to Auscultation - Bilaterally - Cardiovascular Cardiovascular Exam: RRR - GI/Abdominal GI/Abdominal Exam: Non Distended, Soft, No Organomegaly Additional GI/Abdominal Exam Details: Dressing applied to the wound. - Rectal Rectal Exam: Deferred - External Exam: Deferred - Extremities Extremities Exam: Normal Inspection - Back Back Exam: Normal Inspection - Neurological Neurological Exam: Alert, Oriented x 3, Normal Gait, CN II-XII Intact, No Facial Droop, Speech Intact / Clear, Moves All Extremities Equally - Psychiatric Psychiatric Exam: Normal Affect - Integumentary Integumentary Exam: Normal Color Assessment and Plan - Patient Problems (1) Sigmoid diverticulitis Current Visit: Yes Status: Acute Comment: She did receive her antibiotics and Dr. Santoyo discontinued ertapenem yesterday. Code(s): K57.32 - Diverticulitis of large intestine without perforation or abscess without bleeding (2) Bowel perforation Current Visit: Yes Status: Acute Comment: Status post surgery. She'll have a dressing change today. I did talk to the community planner today apparently her insurance did not approve swing bed status I think we'll continue physical therapy here as she still weak I don' t think she is ready for discharge. Code(s): K63.1 - Perforation of intestine (nontraumatic) (3) Atrial fibrillation Current Visit: Yes Status: Acute Comment: Continue previous medications Code(s): I48.91 - Unspecified atrial fibrillation Qualifiers: Atrial fibrillation type: chronic Qualified Code(s): I48.2 - Chronic atrial fibrillation (4) Asthma Current Visit: Yes Status: Acute Comment: Continue Singulair Code(s): J45.909 - Unspecified asthma, uncomplicated Qualifiers: Asthma severity: mild Asthma persistence: intermittent Asthma complication type: uncomplicated Qualified Code(s): J45.20 - Mild intermittent asthma, uncomplicated (5) HTN (hypertension) Current Visit: Yes Status: Acute Comment: Continue Cartia and metoprolol Code(s): I10 - Essential (primary) hypertension Qualifiers: Hypertension type: essential hypertension Qualified Code(s): I10 - Essential (primary) hypertension (6) Hypercholesterolemia Current Visit: Yes Status: Chronic Comment: Same med Code(s): E78.00 - Pure hypercholesterolemia, unspecified (7) Hypothyroidism Current Visit: Yes Status: Chronic Comment: Same med Code(s): E03.9 - Hypothyroidism, unspecified Qualifiers: Hypothyroidism type: acquired Qualified Code(s): E03.9 - Hypothyroidism, unspecified (8) DVT prophylaxis Current Visit: Yes Status: Acute Comment: She is on Lovenox (9) Postoperative anemia due to acute blood loss Current Visit: Yes Status: Acute Comment: Better than the day before. Code(s): D62 - Acute posthemorrhagic anemia
--- NOTE | 2017-10-20 12:44 | CRNA.PROGR ---
Anesthesia Note - Progress Notes Anesthesia Progress Note: Sedated pt so that Dr Titi Santoyo could do a delayed closure with pt comfortable. Monitored, O2 supplemented at 4 l/m via nasal prongs. Gave 2 mg Versed and 20 mg Ketamine iv. Patient was cooperative and rapidly responsive post sameer and dressing applied.
--- NOTE | 2017-10-20 12:44 | PDOC(PROG) ---
Subjective Post Op Day: 5.5 Pain Management: PO Mclaughlin Catheter: No Flatus: Yes Diet: Regular Ambulating: Yes Date and Time of Service: 10/20/2017 12:40 PM. Interval History: Patient is doing well. Tolerating a regular diet. Stoma is functioning. She is improving her ambulation but is still weak. Dr. Bhatt feels she is not ready for discharge and I agree. She needs more ostomy training as well as physical therapy. The patient will need to travel to [place] once discharged. The wound looks good with clean granulation tissue. The dressing was removed. Lauren Easton CRNA give her some versed and ketamine. I then stapled the wound closed and redressed it. The patient tolerated it well. Objective : Data - Labs CBC and BMP: 10/20/17 04:37 10/20/17 04:37 - Vital Signs Vital Signs and I&O: Vital Signs - Last Taken Temperature 97.8 F 10/20/17 09:00 Pulse Rate 89 10/20/17 09:00 Respiratory Rate 20 10/20/17 09:00 Blood Pressure 169/84 10/20/17 09:00 Pulse Ox 94 10/20/17 09:00 Intake and Output (24hr x 4 totals) 10/18/17 10/19/17 10/20/17 10/21/17 05:59 05:59 05:59 05:59 Intake Total 616 / 616 850 / 850 1002 / 1002 260 / 260 Output Total 3125 / 3125 2150 / 2150 1225 / 1225 450 / 450 Balance -2509 / -2509 -1300 / -1300 -223 / -223 -190 / -190 Objective : Exam - General General Appearance: No Acute Distress, Cooperative - Respiratory Respiratory Exam: Clear to Auscultation - Bilaterally, Breathing Non Labored - Cardiovascular Cardiovascular Exam: RRR, No Murmur - GI/Abdominal GI/Abdominal Exam: Normal Bowel Sounds, Non Distended, Soft Additional GI/Abdominal Exam Details: The incision looks good. It was stapled closed. It was redressed. Her abdomen is benign. Her stoma is functioning. She has some incisional tenderness. - Neurological Neurological Exam: Alert, Oriented x 3 - Psychiatric Psychiatric Exam: Normal Affect, Normal Mood Assessment and Plan - Patient Problems (1) Perforation of sigmoid colon due to diverticulitis Current Visit: Yes Status: Acute Priority: High Onset Date: 10/14/17 Comment: Surgically doing very well. The wound has been stapled closed. She may shower and the dressing may be removed on Tuesday. Patient is aware I'm leaving town early in the morning in Dr. Singh will cover. From a surgical viewpoint she may be discharged when medically stable and competent to care for her stoma. Apparently a swing bed was not approved. Code(s): K57.20 - Diverticulitis of large intestine with perforation and abscess without bleeding
[2017-10-20] MEDS: HYDROcodone-APAP 5 MG -325 MG TABLET PO PRN ×2 (14:13→23:02)
[2017-10-20] MEDS ORDERED: Naproxen Tab 500 MG TAB PO PRN (15:13)
[2017-10-20] MEDS: ACETAMINOPHEN 325 MG TABLET PO PRN (21:09)
[2017-10-20] MEDS: Pravastatin Tab 40 MG TAB PO SCH (21:10)
[2017-10-21] MEDS: ACETAMINOPHEN 325 MG TABLET PO PRN ×4 (04:42→22:14)
[2017-10-21] MEDS: LEVOTHYROXINE 50 MCG TABLET PO SCH (04:44)
[2017-10-21] MEDS: PANTOPRAZOLE 40 MG TABLET PO SCH (08:07)
[2017-10-21] MEDS: ENOXAPARIN SODIUM 40 MG/0.4 ML SYRINGE SUBCUT SCH (09:03)
[2017-10-21] MEDS: CARTIA XT 240 MG PO SCH (09:03)
[2017-10-21] MEDS: VITAMIN D3 25 MCG PO SCH (09:03)
[2017-10-21] MEDS: CALCIUM CARBONATE 1000 MG PO SCH (09:03)
[2017-10-21] MEDS: CARVEDILOL 6.25 MG TABLET PO SCH ×2 (09:04→20:06)
[2017-10-21] MEDS: Montelukast Tab 10 MG TAB PO SCH (09:04)
--- NOTE | 2017-10-21 10:05 | OT.PROG ---
Progress Note Progress Note: Occupational Therapy: S: pt stated she was feeling good after having her surgery yesterday. O: pt completed bed mobility MOD I with use of incline bed to sit up. pt completed ADL task of donning UE independently with set up. pt completed functional ambulation x 90' with use of FWW and CGA for safety. pt became fatigued at approximately 70' but wanted to keep walking. A: pt tolerated session well. P: continue POC
--- NOTE | 2017-10-21 10:18 | PDOC(PROG) ---
Subjective Post Op Day: postop day 6 Pain Management: PO Mclaughlin Catheter: No Flatus: Yes Diet: Regular Date and Time of Service: 10/21/2017 at 10 AM Interval History: Patient states she is doing very well. Has changed her bag couple times this does not really change the way for as of yet. She denies any fever or chills abdominal pain. Objective : Data - Labs CBC and BMP: 10/20/17 04:37 10/20/17 04:37 - Vital Signs Vital Signs and I&O: Vital Signs - Last Taken Temperature 98.0 F 10/21/17 08:08 Pulse Rate 75 10/21/17 08:08 Respiratory Rate 18 10/21/17 08:08 Blood Pressure 152/72 10/21/17 08:08 Pulse Ox 93 10/21/17 08:08 Intake and Output (24hr x 4 totals) 10/19/17 10/20/17 10/21/17 10/22/17 05:59 05:59 05:59 05:59 Intake Total 850 / 850 1002 / 1002 1010 / 1010 120 / 120 Output Total 2150 / 2150 1225 / 1225 1000 / 1000 450 / 450 Balance -1300 / -1300 -223 / -223 10 -330 / -330 Objective : Exam - General General Appearance: No Acute Distress, Cooperative - Head Head Exam: Normocephalic - Eye Eye Exam: PERRL, EOMI - GI/Abdominal GI/Abdominal Exam: Non Tender, Soft Assessment and Plan - Patient Problems (1) Bowel perforation Current Visit: Yes Status: Acute Code(s): K63.1 - Perforation of intestine ( nontraumatic) - Assessment / Plan Additional Assessment/Plan Details: Patient 62s status post Lucia procedure for perforated diverticulitis. She is actually doing very well. There is no evidence of infection at this time. From the general surgical standpoint patient is close to being ready be discharge. Questions whether she is strong enough to travel. This be left up to the hospitalist.
--- NOTE | 2017-10-21 12:03 | PT.PROG ---
Progress Note Progress Note: S: Pt states she feels slightly nauseous but better than yesterday. She reports feeling very weak but says she wants to get stronger before the second surgery. O: Tx consisted of 5 [id number] with CGA x1 and standard walker. She performed LE AROM at hip, knee, and ankle for one set of 10. Pt was wheeled back to room and left supine in bed with bed alarm set and call light. A: Pt reported feeling more nauseous after exercise and very tired so a second set of AROM was not performed. Pt has difficulty walking and performing functional activity due to fatigue. Pt tolerated what was performed well and with ROM WNL. P: Pt will continue to benefit from skilled therapy to build strength for functional activity. Trudy Curtis, SPT
--- NOTE | 2017-10-21 13:46 | PDOC(PROG) ---
Interval History: Patient is doing great still appears weak she does not feel comfortable leaving in the going back to [place] yet. She is also being instructed for wound care as well Objective : Data - Labs CBC and BMP: 10/20/17 04:37 10/20/17 04:37 Objective : Exam - General General Appearance: Cooperative - Respiratory Respiratory Exam: Clear to Auscultation - Bilaterally, Breathing Non Labored, Normal To Percussion, Normal to Percussion and Palpation - Cardiovascular Cardiovascular Exam: RRR, No Murmur, No Clicks, No Gallops, No Rubs, PMI Non- Displaced - GI/Abdominal GI/Abdominal Exam: Normal Bowel Sounds, Non Tender, Non Distended, Soft, No Masses, No Hepatomegaly, No Splenomegaly, No Organomegaly - Extremities Extremities Exam: No Clubbing Present, No Edema Present Assessment and Plan - Patient Problems (1) Sigmoid diverticulitis Current Visit: Yes Status: Acute Comment: Patient is post-Lucia procedure for perforated diverticulitis though well postop from the surgical standpoint but patient may be discharged but she still generalized weakness continue PTOT. I discussed this with Misti Deleon also instructing her on wound care and colostomy care Code(s): K57.32 - Diverticulitis of large intestine without perforation or abscess without bleeding (2) Bowel perforation Current Visit: Yes Status: Acute Code(s): K63.1 - Perforation of intestine ( nontraumatic) (3) Atrial fibrillation Current Visit: Yes Status: Acute Comment: Stable at present Code(s): I48.91 - Unspecified atrial fibrillation Qualifiers: Atrial fibrillation type: chronic Qualified Code(s): I48.2 - Chronic atrial fibrillation (4) Asthma Current Visit: Yes Status: Acute Comment: Stable at present time Code(s): J45.909 - Unspecified asthma, uncomplicated Qualifiers: Asthma severity: mild Asthma persistence: intermittent Asthma complication type: uncomplicated Qualified Code(s): J45.20 - Mild intermittent asthma, uncomplicated (5) HTN (hypertension) Current Visit: Yes Status: Acute Comment: Stable at present time Code(s): I10 - Essential (primary) hypertension Qualifiers: Hypertension type: essential hypertension Qualified Code(s): I10 - Essential (primary) hypertension (6) Hypercholesterolemia Current Visit: Yes Status: Chronic Comment: Stable at present time Code(s): E78.00 - Pure hypercholesterolemia, unspecified (7) Hypothyroidism Current Visit: Yes Status: Chronic Comment: Able to present time Code(s): E03.9 - Hypothyroidism, unspecified Qualifiers: Hypothyroidism type: acquired Qualified Code(s): E03.9 - Hypothyroidism, unspecified (8) DVT prophylaxis Current Visit: Yes Status: Acute (9) Postoperative anemia due to acute blood loss Current Visit: Yes Status: Acute Code(s): D62 - Acute posthemorrhagic anemia
--- NOTE | 2017-10-21 16:24 | PT.PROG ---
Progress Note Progress Note: S. Patient stated that she is feeling much better this afternoon compared to this morning. O. Patient ambulated 175 feet to the therapy gym where she performed seated long arc quads, heel toe raises, marches and box step ups (#2 box) all x 10 bilaterally. Patient ambulated 175 feet back to her room where she was left in the restroom and nursing was notified. A. Patient tolerated ambulation well today, she continues to have some weakness however is making gains with endurance and mobility. Patient would continue to benefit from skilled therapy at this time. P. Continue POC.
[2017-10-21] MEDS: Pravastatin Tab 40 MG TAB PO SCH (20:06)
[2017-10-22 04:00] VITALS: RESP 18
[2017-10-22] MEDS: LEVOTHYROXINE 50 MCG TABLET PO SCH (04:43)
[2017-10-22] MEDS: ACETAMINOPHEN 325 MG TABLET PO PRN (06:34)
[2017-10-22] MEDS: PANTOPRAZOLE 40 MG TABLET PO SCH (06:35)
[2017-10-22 09:36] LABS: Hematocrit [HCT] 33.1 % (37.0-47.0); Hemoglobin [HGB] 10.8 g/dL (12.0-16.0); MEAN CORPUSCULAR HEMOGLOBIN 29.3 PG (27-31); MEAN CORPUSCULAR HGB CONC 32.6 g/dL (33-37); MEAN CORPUSCULAR VOLUME 89.7 FL (81-99); MEAN PLATELET VOLUME 9.8 FL (7.4-12.2); RED BLOOD COUNT 3.69 10^6/uL (4.20-5.40)
[2017-10-22 10:01] LABS: BLOOD UREA NITROGEN 9 mg/dL (7-22); BUN/CREATININE RATIO 12.85 (6-20); SERUM ALBUMIN 3.4 g/dL (3.5-4.8)
[2017-10-22] MEDS: VITAMIN D3 25 MCG PO SCH (10:10)
--- NOTE | 2017-10-22 10:10 | PDOC(PROG) ---
Subjective Post Op Day: postop day 7 Pain Management: PO Mclaughlin Catheter: No Flatus: Yes Diet: Regular Date and Time of Service: 10/22/2017 Interval History: Patient states that she's feeling good. Still cannot walk up a flight of stairs. She is still using a walker. Objective : Data - Labs CBC and BMP: 10/22/17 09:16 10/20/17 04:37 - Vital Signs Vital Signs and I&O: Vital Signs - Last Taken Temperature 97 F 10/22/17 07:17 Pulse Rate 81 10/22/17 07:17 Respiratory Rate 18 10/22/17 07:17 Blood Pressure 141/75 10/22/17 07:17 Pulse Ox 92 10/22/17 07:17 Intake and Output (24hr x 4 totals) 10/20/17 10/21/17 10/22/17 10/23/17 05:59 05:59 05:59 05:59 Intake Total 1002 / 1002 1010 / 1010 880 / 880 360 / 360 Output Total 1225 / 1225 1000 / 1000 1650 / 1650 250 / 250 Balance -223 / -223 10 -770 / -770 110 / 110 Objective : Exam - GI/Abdominal GI/Abdominal Exam: Non Tender, Non Distended, Soft Additional GI/Abdominal Exam Details: Incision clean and nonerythematous no signs of infection Assessment and Plan - Patient Problems (1) Bowel perforation Current Visit: Yes Status: Acute Code(s): K63.1 - Perforation of intestine ( nontraumatic) - Assessment / Plan Additional Assessment/Plan Details: Overall patient is improving. She still not strong enough to do activities of daily living at home. Therefore think she does need additional physical therapy. If okay with her insurance company she could be's placed on swing bed status.
[2017-10-22] MEDS: CARTIA XT 240 MG PO SCH (10:11)
[2017-10-22] MEDS: CALCIUM CARBONATE 1000 MG PO SCH (10:11)
[2017-10-22] MEDS: ENOXAPARIN SODIUM 40 MG/0.4 ML SYRINGE SUBCUT SCH (10:11)
[2017-10-22] MEDS: CARVEDILOL 6.25 MG TABLET PO SCH (10:12)
[2017-10-22] MEDS: Montelukast Tab 10 MG TAB PO SCH (10:12)
[2017-10-22] MEDS ORDERED: Magnesium Sulfate 2gm (Premix) 2 GM/50 ML BAG IV ONE (10:16)
--- NOTE | 2017-10-22 10:34 | PT.PROG ---
Progress Note Progress Note: S. Patient states that she is feeling good this morning. O. Patient ambulated 175 feet to the therapy gym where she performed seated exercises in the form of; long arc quads, heel toe raises, marches all x 10 bilaterally, upper extremity range of motion flexion/extension, abduction/ adduction all x 10 bilaterally. Patient ambulated 175 feet back to her room where she was left with alarm and call light. A. Patient tolerated therapy well today, she is a little fearful to perform new tasks. Patient would continue to benefit from skilled therapy to increase strength and endurance. P. continue POC.
--- NOTE | 2017-10-22 11:47 | PDOC(PROG) ---
Interval History: Doing well discuss case with patient and Misti she performed her her third the colostomy is a change we will discuss further with physical therapy on patient' s discharge for [facility] no chest pain nausea or vomiting Objective : Data - Labs CBC and BMP: 10/22/17 09:16 10/22/17 09:16 Objective : Exam - General General Appearance: Cooperative - Respiratory Respiratory Exam: Clear to Auscultation - Bilaterally, Breathing Non Labored, Normal To Percussion, Normal to Percussion and Palpation - Cardiovascular Cardiovascular Exam: RRR, No Murmur, No Clicks, No Gallops, No Rubs, PMI Non- Displaced - GI/Abdominal GI/Abdominal Exam: Non Tender, Non Distended, Soft - Extremities Extremities Exam: No Clubbing Present, No Edema Present, No Cyanosis Present Assessment and Plan - Patient Problems (1) Sigmoid diverticulitis Current Visit: Yes Status: Acute Code(s): K57.32 - Diverticulitis of large intestine without perforation or abscess without bleeding (2) Bowel perforation Current Visit: Yes Status: Acute Code(s): K63.1 - Perforation of intestine ( nontraumatic) (3) Atrial fibrillation Current Visit: Yes Status: Acute Code(s): I48.91 - Unspecified atrial fibrillation Qualifiers: Atrial fibrillation type: chronic Qualified Code(s): I48.2 - Chronic atrial fibrillation (4) Asthma Current Visit: Yes Status: Acute Code(s): J45.909 - Unspecified asthma, uncomplicated Qualifiers: Asthma severity: mild Asthma persistence: intermittent Asthma complication type: uncomplicated Qualified Code(s): J45.20 - Mild intermittent asthma, uncomplicated (5) HTN (hypertension) Current Visit: Yes Status: Acute Code(s): I10 - Essential (primary) hypertension Qualifiers: Hypertension type: essential hypertension Qualified Code(s): I10 - Essential (primary) hypertension (6) Hypercholesterolemia Current Visit: Yes Status: Chronic Code(s): E78.00 - Pure hypercholesterolemia, unspecified (7) Hypothyroidism Current Visit: Yes Status: Chronic Code(s): E03.9 - Hypothyroidism, unspecified Qualifiers: Hypothyroidism type: acquired Qualified Code(s): E03.9 - Hypothyroidism, unspecified (8) DVT prophylaxis Current Visit: Yes Status: Acute (9) Postoperative anemia due to acute blood loss Current Visit: Yes Status: Acute Code(s): D62 - Acute posthemorrhagic anemia - Assessment / Plan Additional Assessment/Plan Details: Continue current medical treatment for medical issues we have replaced the magnesium for hypomagnesemia with 2 g today discuss case with Mrs. Pierce we'll talk with physical therapy medically patient is ready to be discharged most likely she will be going to bother his house and do physical therapy as an outpatient once we hear back from physical therapy
[2017-10-22 12:26] VITALS: BP 147/70; TEMP 98.2; O2SAT 96
--- NOTE | 2017-10-22 13:34 | DCSUMMARY ---
Hospitalization Summary Hospital Course: Final Discharge Diagnosis: Current Visit Problems Problem Status Onset Code Abdominal pain Acute R10.9 Pneumoperitoneum Acute K66.8 Sigmoid diverticulitis Acute K57.32 Bowel perforation Acute K63.1 Atrial fibrillation Acute I48.91 Asthma Acute J45.909 HTN (hypertension) Acute I10 Hypercholesterolemia Chronic E78.00 Hypothyroidism Chronic E03.9 Perforated viscus Acute 10/14/17 R19.8 Hypokalemia Acute E87.6 Hypomagnesemia Acute E83.42 Perforation of sigmoid colon due to diverticulitis Acute 10/14/17 K57.20 DVT prophylaxis Acute Postoperative anemia due to acute blood loss Acute D62 Diagnostic Data, Laboratory Data, and Procedures of Signifigance: Abnormal Lab Results (Last 24 Hours) Range/Units 10/22/17 10/22/17 10/22/17 09:16 09:16 09:16 RBC (4.20-5.40) 10^6/uL 3.69 L Hgb (12.0-16.0) g/dL 10.8 L Hct (37.0-47.0) % 33.1 L MCHC (33-37) g/dL 32.6 L RDW Std Deviation (39-50) fL 50.8 H RDW Coeff of Pascual (11.5-14.5) % 16.4 H Plt Count (140-350) 10*3/uL 397 H Magnesium (1.6-2.4) mg/dL 1.5 L Albumin (3.5-4.8) g/dL 3.4 L Albumin/Globulin Ratio (1.3-2.0) mg/g 1.10 L History and Physical pertinent to Admission: Past Medical History Medical History: 1. prediabetes. 2. colon polyps. 3. atrial fibrillation. 4.asthma. 5. hypercholesterolemia. 6. hypothyroidism Surgical History: 1. bilateral thumb surgery. 2. carpal tunnel release. 3. C- section X 2,. 4. incidental appendectomy Pertinent Family History: significant for heart disease in parents and brother. Past Social History: does not smoke or drink alcohol. over thirty nine years. retired. resides in [place]. has two healthy children. Tobacco Use: Never Smoker In the Past 12 Months, Have Used or Abuse Any of the Following Substance: None Alcohol Use: None Course of Hospitalization: Is a very nice 76-year-old female passing through here originally from [place] with past medical history significant for A. fib prediabetes calms down to the ER with abdominal pain acute onset CT scan confirmed perforated sigmoid colon with thickening was evaluated by Dr. Santoyo general surgery who decided to take her to the OR she did well postop she rehabilitated. She was instructed on how to take care of her stoma Mrs. LOPES and instructed her and helped her through this process also she underwent some physical therapy and according to Melissa Ricardo and the after I saw the patient today physical therapy the patient and the nurse called me and stated that she was ready to be discharged home and she will be staying at the [facility] here in [place] for a few more days and continue outpatient physical therapy for full strength recovery before going back home to [place] with her . I also called Dr. panfilo Thomas general surgery and told him about the plan he was in agreement of discharging the patient with the above plan I did replace her with 2 g magnesium this morning and patient is much better and all her other medical issues are within normal and stable limits. Change on home medication. Again this was discussed with the suresh Ricardo and Melissa Ricardo and Dr. panfilo Thomas and patient On the date of discharge, the patient was examined: Gen.: No acute distress, alert, nontoxic Heart: Regular rate and rhythm, no murmurs, clicks, gallops, or rubs Lungs: Clear to auscultation bilaterally, breathing is nonlabored Abdomen/GI: Normal tones on auscultation, soft, nontender, nondistended Musculoskeletal/extremities: No clubbing, cyanosis, or edema Vitals reviewed and are listed below Vital Signs (24 hrs) Temp Pulse Resp BP BP Pulse Ox 10/22/17 12:26 98.2 F 84 18 147/70 96 10/22/17 07:17 97 F 81 18 141/75 92 10/22/17 07:00 81 10/22/17 03:58 97.9 F 80 18 152/72 92 10/22/17 01:00 98.4 F 78 16 144/78 94 10/21/17 20:20 98.3 F 80 20 142/65 93 10/21/17 17:00 98.6 F 77 18 141/64 93 Assessment and Plan: 1. As per discharge assessments above 2. Disposition: Home 3. Condition on discharge, stable and improved. 4. Diet: regular diet 5. Activities: resume normal activities 6. Follow-Up: 1. PCP [place] and according to Dr. panfilo Thomas has a surgeon lined up to take out her sameer as a instructed by Dr. panfilo Thomas 2. Continue doing outpatient physical therapy at [facility] and this she will continue with instructing her on stoma care 7. Medications at the Time of Discharge: Home Medications 3 Medication Instructions Recorded Confirmed Type Albuterol Sulfate [Proair Hfa] 2 puff INH Q6H PRN 10/14/17 10/14/17 History Aspirin [Rocio Chewable Aspirin] 81 mg PO DAILY 10/14/17 10/14/17 History Calcium Carbonate [Tums] 200 mg PO BID 10/14/17 10/14/17 History Carvedilol [Coreg] 6.25 mg PO BID 10/14/17 10/14/17 History Cholecalciferol [Vitamin D3] 1,000 mg PO DAILY 10/14/17 10/14/17 History Diltiazem HCl [Cartia Xt] 240 mg PO DAILY 10/14/17 10/14/17 History Fenofibrate 160 mg PO BEDTIME 10/14/17 10/14/17 History Levothyroxine Sodium [Synthroid] 75 mcg PO DAILY 10/14/17 10/14/17 History Meclizine HCl 25 mg PO Q6H PRN 10/14/17 10/14/17 History Montelukast Sodium 10 mg PO DAILY 10/14/17 10/14/17 History Multivitamin [Multivitamins] 1 ea PO DAILY 10/14/17 10/14/17 History Mv-Min/FA/Vit K/Lycop/Lut/Zeax 1 tab PO DAILY 10/14/17 10/14/17 History [Ocuvite Eye Plus Multi Tablet] [place]-3/Dha/Epa/Fish Oil [Fish Oil 1,400 mg PO DAILY 10/14/17 10/14/17 History 1,400 mg Softgel] Pantoprazole Sodium [Protonix] 40 mg PO BID 10/14/17 10/14/17 History Pravastatin Sodium 40 mg PO DAILY 10/14/17 10/14/17 History metFORMIN Tab [Glucophage Tab] 500 mg PO BID 10/14/17 10/14/17 History 8. Time, care, counseling and coordination of care for this discharge is greater than 30 minutes. Exam - Vitals Vital Signs: Vital Signs Temperature 98.2 F Temperature Source Temporal Artery Scan Pulse Rate [Pulse Oximeter] 84 Pulse Rate 78 Respiratory Rate 18 Blood Pressure [Left Radial 147/70 Artery] Blood Pressure [Right Radial 134/86 Artery] Blood Pressure [Left Arm] 152/72 Blood Pressure 153/72 Pulse Ox 96 Oxygen Flow Rate 0.5 Oxygen Delivery Method Room Air Height 5 ft 1 in Weight 144 lb 1.6 oz Patient Problems - Patient Problem List (1) Sigmoid diverticulitis Current Visit: Yes Status: Acute Code(s): K57.32 - Diverticulitis of large intestine without perforation or abscess without bleeding Category: Medical (2) Bowel perforation Current Visit: Yes Status: Acute Code(s): K63.1 - Perforation of intestine ( nontraumatic) Category: Medical (3) Atrial fibrillation Current Visit: Yes Status: Acute Code(s): I48.91 - Unspecified atrial fibrillation Qualifiers: Atrial fibrillation type: chronic Qualified Code(s): I48.2 - Chronic atrial fibrillation Category: Medical (4) Asthma Current Visit: Yes Status: Acute Code(s): J45.909 - Unspecified asthma, uncomplicated Qualifiers: Asthma severity: mild Asthma persistence: intermittent Asthma complication type: uncomplicated Qualified Code(s): J45.20 - Mild intermittent asthma, uncomplicated Category: Medical (5) HTN (hypertension) Current Visit: Yes Status: Acute Code(s): I10 - Essential (primary) hypertension Qualifiers: Hypertension type: essential hypertension Qualified Code(s): I10 - Essential (primary) hypertension Category: Medical (6) Hypercholesterolemia Current Visit: Yes Status: Chronic Code(s): E78.00 - Pure hypercholesterolemia, unspecified Category: Medical (7) Hypothyroidism Current Visit: Yes Status: Chronic Code(s): E03.9 - Hypothyroidism, unspecified Qualifiers: Hypothyroidism type: acquired Qualified Code(s): E03.9 - Hypothyroidism, unspecified Category: Medical (8) DVT prophylaxis Current Visit: Yes Status: Acute Category: Medical (9) Postoperative anemia due to acute blood loss Current Visit: Yes Status: Acute Code(s): D62 - Acute posthemorrhagic anemia Category: Medical
--- NOTE | 2017-10-24 17:47 | OT PM DAY ---
Diagnosis : Abdominal Surgery PM - Occupational Therapy S: The patient reports she is feeling a little better after the last procedure. O: The patient completed upper extremity range of motion x20 repetitions for shoulder flexion, shoulder abduction, biceps curls, pronation/supination, wrist flexion/extension, digi-flex, wrist exercises with two pounds in all planes, and power web for flexion/extension. A: The patient is not to be lifting from shoulder, but we did do some light resistive exercises for her hand and elbow. The patient is making slight gains , but still has endurance difficulties and balance difficulties. P: Continue seeing patient BID during the week and one time per day over the weekend for upper extremity strengthening, ADLs, and overall functional mobility. JAQUAND
== END 2017-10-22 15:20 | disposition home or self-care (01) | DRG 330 ==
LOC: ER 18:10 → OR 22:10 → ICU 10-15 01:53 → MED/SURG 10-16 07:35
PROVIDERS: ADMIT Surgery; ATTEND Family Medicine